=== PATIENT | female | born 1980 | race Caucasian/White ===

== ENCOUNTER 2018-03-18 00:23 | Emergency (ER) | payer BC, SELFPAY ==
[2018-03-18 00:29] VITALS: BP 153/77; PULSE 120; RESP 28; TEMP 37; O2SAT 94
--- NOTE | 2018-03-18 00:41 | ED.GENADUL_ITS ---
Disposition Clinical Impression: Sore throat Disposition: HOME Condition: Good Instructions: Pharyngitis (ED) Additional Instructions: May use Tylenol 650-975 mg every 4-6 hours, as needed for pain. Total daily dose should not exceed 2000 mg. May use ibuprofen 600-800 mg every 8 hours, with food, as needed for pain OR may use Aleve 500mg every 12 hours as needed for pain. Please follow-up with regular doctor if not improving in 3 days time. Return to the emergency department for any acute concerns. Medical Decision Making - Lab Data POC Strep Test-[facility](Rapid) Start: 03/18/18 00: 33 Freq: Status: Active Document 03/18/18 00:33 (Rec: 03/18/18 00:33 [id number]) Strep test-[facility](Rapid)-POC POC-Strep test-[facility] (Rapid) Negative - Medical Decision Making 38-year-old female presents with sore throat over 1 days time. She is afebrile , well-appearing, her oropharynx is erythematous without asymmetry or exudate. Differential diagnosis includes acute streptococcal pharyngitis, viral pharyngitis. Referred for rapid strep test which was negative. Given single dose of dexamethasone for its anti-inflammatory properties. She will use over- the-counter medicines at home to control the discomfort and return if worsening. Stable for discharge. Please note: Account Resolution Expert/documentation created with [employer] software. There may be voice to text translation errors in this documentation. History of Present Illness - General Chief complaint: Sorethroat Stated complaint: SORE THROAT Time Seen by Provider: 03/18/18 00:26 Source: patient, RN notes reviewed Mode of arrival: ambulatory Limitations: no limitations - History of Present Illness Initial comments: Sore throat: 38-year-old female reports the gradual onset this morning of constant, moderate , achy sore throat is nonradiating. She has been taking liquids and solids by mouth without difficulty. She has not had drooling. No ear pain. No fever. - Related Data Etonogestrel [Nexplanon] 68 mg SQ ONCE #1 implant 09/21/15 Compression Garments 01/21/16 Albuterol Sulfate [Proair Hfa] 1 - 2 puff IH Q4H PRN #1 inhaler 08/11/17 Mag Hydrox/Al Hydrox/Simeth [Maalox Advanced Suspension] 30 ml PO Q2H PRN PRN # 1 ml 10/24/17 Loratadine [Claritin] 10 mg PO DAILY #90 tab-cap 11/28/17 Omeprazole 20 mg PO DAILY #30 tab-cap 11/28/17 Ranitidine [Zantac] 150 mg PO DAILY 03/18/18 Allergies Allergy/AdvReac Type Severity Reaction Status Date / Time nickel Allergy Intermediate Blistering Unverified 03/18/18 00:30 and shedding skin strawberry Allergy Intermediate HIVES Unverified 03/18/18 00:30 oxycodone AdvReac Severe SEVERE Unverified 03/18/18 00:30 NAUSEA/SHAKES erythromycin base AdvReac Intermediate VOMITING Unverified 03/18/18 00:30 adhesive AdvReac Mild Unverified 03/18/18 00:30 influenza virus vaccine, AdvReac Unverified 03/18/18 00:30 specific Review of Systems Other: 6 systems reviewed, otherwise negative Past Medical History - Past Medical History Medical history: asthma, DVT Surgical history: Family history: no significant family history - Social History Alcohol use: occasionally Drug use: none General Exam - General Limitations: no limitations General appearance: alert, in no apparent distress - Head Head exam: Present: atraumatic, normocephalic - Eye Eye exam: Present: PERRL, EOMI - ENT ENT exam: Present: other (Erythematous tonsillar pillars without swelling, no exudate.) - Neck Neck exam: Present: normal inspection, tenderness, full ROM, lymphadenopathy. Absent: meningismus - Respiratory Respiratory exam: Present: normal lung sounds bilaterally. Absent: respiratory distress - Cardiovascular Cardiovascular Exam: Present: regular rate, normal rhythm, other (Heart rate was approximately 88 at the time of my exam) - GI/Abdominal GI/Abdominal exam: Present: soft. Absent: distended - Neurological Exam Neurological exam: Present: alert, oriented X3 - Psychiatric Psychiatric exam: Present: normal affect, normal mood - Skin Skin exam: Present: warm, dry, intact Course Vital Signs - 24 hr 03/18/18 00:29 Temperature 37 C Pulse 120 H Respiratory 28 H Rate Blood Pressure 153/77 Pulse Oximetry 94 L
== END 2018-03-18 00:44 | disposition home or self-care (01) ==
PROVIDERS: Emergency Provider Emergency Medicine; PCP Family Medicine
DX: J02.9 Acute pharyngitis, unspecified (principal)
CPT/HCPCS: 87880; 99283

== ENCOUNTER 2018-03-19 17:46 | Emergency (ER) | payer BC, SELFPAY ==
[2018-03-19 18:03] VITALS: BP 147/109; PULSE 98; RESP 16; TEMP 36.9; O2SAT 94
--- NOTE | 2018-03-19 18:44 | ED.GENADUL_ITS ---
Disposition Clinical Impression: Hand, foot and mouth disease, Cellulitis Disposition: HOME Condition: Fair Instructions: Viral Syndrome (ED) Additional Instructions: Encourage hydration. Take antibiotics for cellulitis on the right leg as prescribed. Even if symptoms improve please take the entire course. If you develop fever/chills, spreading of the redness, other new/worsening symptoms please seek care urgently once again. In regard to the xwak-xahl-wit-mouth, this is viral and self-limiting. May try hydrocortisone cream to help with the itching in her hands. Tylenol and/or ibuprofen as needed for discomfort. Please follow-up with primary care in 1 week for reevaluation. Prescriptions: Cephalexin [Keflex] 500 mg PO BID #14 capsule Referrals: Chris Hernandez MD [Primary Care Provider] - Forms: Work Release Medical Decision Making - Medical Decision Making Patient presents with chief complaint of rash to hands, feet and in oropharynx. Rash consistent with hadn foot and mouth. We discussed that this is viral and self limiting. Discussed expected course. Discussed that this is contagious and how to prevent spread. Discussed techniques that may help with symptomatic management. Offered viscous lidocaine, she is declining at this time. Feels that she is able to hydrate an swallow well. Marlys also has a defined area of erythema that has been growing on the RLE. Patient has history of lymphadema. This is most consistent with growing area of cellulitis. She will be placed on Keflex. Encouraged hydration. Advised f/ u with primary care in one week for reevaluation. We discussed new/worsening symptoms and when to seek care urgently once again. All of her questions and concerns were addressed, she is in agreement with this plan. History of Present Illness - General Chief complaint: RashLesion Stated complaint: RASH ON FEET AND HANDS AND LEGS Time Seen by Provider: 03/19/18 18:28 Source: patient, family, RN notes reviewed Mode of arrival: ambulatory Limitations: no limitations - History of Present Illness Initial comments: Patient is a 38-year-old female presenting today with chief complaint of rash to hands, feet and mouth. She reports that symptoms began 3 days ago. She denies any fevers or chills. Denies any GI upset or upper respiratory symptoms. Was tested for strep throat 3 days ago when she was seen in the emergency department. She reports that at that point the symptoms seemed to be isolated to the sore throat. Strep throat was found to be negative. However, she began noting rash on the feet and hands today. Reports that the rash on her feet is uncomfortable particularly ambulation. Rash on hands, which appears very similar to that of the feet, is itchy patient has Nexplanon. Also noted erythematous, painful area on the right anterior tibia. Patient reports that this began this morning and has since grown. Patient does have history of lymphedema. Unclear as to where this lesion may have started from. No known trauma. - Related Data Etonogestrel [Nexplanon] 68 mg SQ ONCE #1 implant 09/21/15 Compression Garments 01/21/16 Albuterol Sulfate [Proair Hfa] 1 - 2 puff IH Q4H PRN #1 inhaler 08/11/17 Mag Hydrox/Al Hydrox/Simeth [Maalox Advanced Suspension] 30 ml PO Q2H PRN PRN # 1 ml 10/24/17 Loratadine [Claritin] 10 mg PO DAILY #90 tab-cap 11/28/17 Omeprazole 20 mg PO DAILY #30 tab-cap 11/28/17 Ranitidine [Zantac] 150 mg PO DAILY 03/18/18 Cephalexin [Keflex] 500 mg PO BID #14 capsule 03/19/18 Allergies Allergy/AdvReac Type Severity Reaction Status Date / Time nickel Allergy Intermediate Blistering Unverified 03/19/18 18:07 and shedding skin strawberry Allergy Intermediate HIVES Unverified 03/19/18 18:07 oxycodone AdvReac Severe SEVERE Unverified 03/19/18 18:07 NAUSEA/SHAKES erythromycin base AdvReac Intermediate VOMITING Unverified 03/19/18 18:07 adhesive AdvReac Mild Unverified 03/19/18 18:07 influenza virus vaccine, AdvReac Unverified 03/19/18 18:07 specific Review of Systems Constitutional: no symptoms reported Respiratory: no symptoms reported Cardiovascular: denies: chest pain Gastrointestinal: denies: abdominal pain, nausea, vomiting Musculoskeletal: as per HPI Skin: as per HPI Neurological: as per HPI, abnormal gait (walking with antalgic gait secondary to bilateral foot pain) Past Medical History - Past Medical History Medical history: asthma, DVT, GERD PCOS, morbid obesity Surgical history: Family history: no significant family history - Social History Alcohol use: occasionally Drug use: none General Exam - General Limitations: no limitations General appearance: alert, in no apparent distress - Eye Eye exam: Present: normal apperance - ENT ENT exam: Present: mucous membranes moist. Absent: normal exam (Patient has a erythematous rash to the soft palate. Uvula is midline. No discharge. No tonisillar swelling) - Respiratory Respiratory exam: Present: normal lung sounds bilaterally. Absent: respiratory distress, wheezes, rales, rhonchi, stridor - Cardiovascular Cardiovascular Exam: Present: regular rate, normal rhythm, irregular rhythm - Extremities Exam Extremities exam: Present: tenderness, normal capillary refill, pedal edema ( chronic lymphadema). Absent: normal inspection (Patient has a raised erythematous rash with small circular defined areas on both the feet and hands. On feet, rash is on dorsal and platar surfaces. Primarily on the palm of the hands. No opening. No evidence of bacterial infection. Tenderness with palpation over the feet. areas of excoriation. Patinet has a defined area of erythema and warmth over the anteriolateral right lower extremity. This area is approximately 4cm x 3cm. No drainage, no area of fluctuance.), joint swelling, calf tenderness - Back Exam Back exam: Absent: rash noted - Neurological Exam Neurological exam: Present: alert, normal gait - Psychiatric Psychiatric exam: Present: normal affect, normal mood - Skin Skin exam: Present: rash (as above) Course Vital Signs - 24 hr 03/19/18 18:03 Temperature 36.9 C Pulse 98 H Respiratory 16 Rate Blood Pressure 147/109 Pulse Oximetry 94 L
== END 2018-03-19 19:00 | disposition home or self-care (01) ==
PROVIDERS: Emergency Provider Emergency Medicine; PCP Family Medicine
DX: B08.4 Enteroviral vesicular stomatitis with exanthem (principal); L03.115 Cellulitis of right lower limb; Z87.2 Personal history of diseases of the skin and subcutaneous tissue
CPT/HCPCS: 99283

== ENCOUNTER 2018-03-21 12:11 | Emergency (ER) | payer BC, SELFPAY ==
[2018-03-21 12:16] VITALS: BP 135/82; PULSE 102; RESP 18; TEMP 37.1; O2SAT 95
--- NOTE | 2018-03-21 13:12 | ED.GENADUL ---
Disposition Clinical Impression: Hand, foot and mouth disease Disposition: HOME Condition: Fair Instructions: Viral Syndrome (ED) Additional Instructions: Encourage hydration. Tylenol and/or ibuprofen as needed for discomfort. If this is unsuccessful in alleviating your discomfort please use Vicodin as prescribed. Use medication only as prescribed. Keep this in a safe place. There is 300 mg of Tylenol and every tablet of Vicodin. Please do not take more than 4000 mg of Tylenol daily. Please keep upcoming appointment with primary care. If you develop fever/chills, increased pain or the new/worsening symptoms please seek care urgently once again. Prescriptions: Hydrocodone Bit/Acetaminophen [Vicodin 5-300 mg Tablet] 1 each PO Q4H PRN #10 tablet PRN Reason: Pain Referrals: Chris Hernandez MD [Primary Care Provider] - Forms: Work Release Medical Decision Making - Medical Decision Making Patient presents today for reevaluation of qvsd-klpg-qvz-mouth. On exam, she continues to have the classic rash associated with guic-gsrf-epn-mouth. Given the severity of her discomfort I did ask Dr. Gibbs to evaluate her as well. Dr. Gibbs also reviewed the rash and agrees with my assessment of kitj-dzoj-qsb-mouth. Patient believes she had a exposure to qwca-lgxe-mwd-mouth from her daughter. Given her level of discomfort, I am concerned that may she may have been exposed to coxsackie a 6. My review of the literature shows that this tends to be more uncomfortable. I also reviewed with the patient that this tends to last longer and may last up to 12 days. Given her acute discomfort I feel that narcotics are appropriate at this time to help with her discomfort. I do not see any evidence of acute infection. Patient has been afebrile and the site of her discomfort has been feeling well. Patient will be placed on Vicodin. Has had allergy to oxycodone in the past was tolerated Vicodin well. I discussed with her the safe usage of Tylenol with this medication, she is advised not use more than 4000 mg daily. Patient will contract for narcotic usage. She is given strict usage guidelines. In particular, as she has a young child advise safe storage of this medication. Patient has an upcoming appointment with primary care in 2 days at which time she will have the rash reevaluated. All of her questions and concerns were addressed and she is in agreement with this plan. Encouraged elevation of her extremities. Note was given for work. History of Present Illness - General Chief complaint: RashLesion Stated complaint: HAND FOOT AND MOUTH Time Seen by Provider: 03/21/18 12:16 Source: patient, family, RN notes reviewed Mode of arrival: ambulatory Limitations: no limitations - History of Present Illness Initial comments: Patient is a 38-year-old female presenting today with chief complaint of rash to her mouth, hands and feet. Patient was seen by myself 2 days ago at which time she was diagnosed with frun-mwfv-ixv-mouth. She reports that since that time the rash has darkened in color and that she is had increased discomfort. No fevers or chills. Patient was placed on Keflex by myself when I saw her previously for area of suspected cellulitis on her right lower extremity that did not appear related to the hlrz-bxjn-oyp-mouth rash. That area has become erythematous prior to the onset of the lhwe-djox-ccm-mouth symptoms. Patient has been taking Keflex as prescribed. She has also noted new lesions on the left lateral aspect of her tongue. States that while the sores in her mouth has been uncomfortable the feet are particularly bothersome to her. She reports she has not been able to go to work secondary to this discomfort. States that it is quite debilitating discomfort. Has not noted any opening or weeping of any of the wounds. - Related Data Etonogestrel [Nexplanon] 68 mg SQ ONCE #1 implant 09/21/15 Compression Garments 01/21/16 Albuterol Sulfate [Proair Hfa] 1 - 2 puff IH Q4H PRN #1 inhaler 08/11/17 Loratadine [Claritin] 10 mg PO DAILY #90 tab-cap 11/28/17 Ranitidine [Zantac] 150 mg PO DAILY 03/18/18 Cephalexin [Keflex] 500 mg PO BID #14 capsule 03/19/18 Hydrocodone Bit/Acetaminophen [Vicodin 5-300 mg Tablet] 1 each PO Q4H PRN #10 tablet 03/21/18 Allergies Allergy/AdvReac Type Severity Reaction Status Date / Time nickel Allergy Intermediate Blistering Unverified 03/21/18 12:21 and shedding skin strawberry Allergy Intermediate HIVES Unverified 03/21/18 12:21 oxycodone AdvReac Severe SEVERE Unverified 03/21/18 12:21 NAUSEA/SHAKES erythromycin base AdvReac Intermediate VOMITING Unverified 03/21/18 12:21 adhesive AdvReac Mild Unverified 03/21/18 12:21 influenza virus vaccine, AdvReac Unverified 03/21/18 12:21 specific Review of Systems Constitutional: no symptoms reported, see HPI. denies: chills, fever ENT: as per HPI Respiratory: no symptoms reported. denies: cough, shortness of breath Cardiovascular: denies: chest pain, palpitations Gastrointestinal: denies: abdominal pain, nausea, vomiting Musculoskeletal: as per HPI Skin: as per HPI Neurological: as per HPI, abnormal gait (Associated with pain in her feet) Past Medical History - Past Medical History Medical history: asthma, DVT, GERD PCOS, morbid obesity Surgical history: Family history: no significant family history - Social History Alcohol use: occasionally Drug use: none General Exam - General Limitations: no limitations General appearance: alert, in no apparent distress (Patient appears uncomfortable and upset) - Head Head exam: Present: atraumatic - Eye Eye exam: Present: normal apperance - ENT ENT exam: Present: normal orophraynx, mucous membranes moist. Absent: normal exam (Patient has 3 small ulcerative lesions on the lateral aspect of the left side of her tongue. They are approximately 1-2 mm in diameter. No surrounding erythema. No discharge is noted. Minimal pain with palpation. The oropharynx is otherwise unremarkable. I had appreciated a rash in this area when I had seen her previously and this seems to have resolved) - Neck Neck exam: Present: normal inspection - Respiratory Respiratory exam: Present: normal lung sounds bilaterally. Absent: respiratory distress - Cardiovascular Cardiovascular Exam: Present: regular rate, normal rhythm, normal heart sounds - Rectal Rectal exam: Present: deferred - Extremities Exam Extremities exam: Absent: normal inspection (Patient is noted to have a maculopapular rash over the palms of her bilateral hands and circumferentially about the feet. Rash is erythematous with 2-3 mm circumferential areas noted. Some of these are flat and some are slightly raised. These do not appear open. No weeping. Pain is elicited with palpation over the feet and the palms. She feels that she is limited range of motion secondary to this rash and discomfort. No surrounding erythema. This rash is consistent with mchr-ajti-omv-mouth. She is also noted to have some small areas that are more sporadic on the lower extremities that are erythematous. The area that had been concerning for cellulitis when I saw her a few days ago appears to be improving. The erythema is not quite as bright and the size overall has diminished. Again, no discharge from these areas. No tenderness elicited with palpation over this area at this time. ) - Back Exam Back exam: Present: rash noted (Patient has an excoriated rash over the right side of the upper buttock. None is noted elsewhere) - Neurological Exam Neurological exam: Present: alert, abnormal gait (Patient is ambulating with an antalgic gait, she appears uncomfortable with ambulation) - Psychiatric Psychiatric exam: Present: normal affect, normal mood - Skin Skin exam: Present: rash (As above) Course Vital Signs - 24 hr 03/21/18 12:16 Temperature 37.1 C Pulse 102 H Respiratory 18 Rate Blood Pressure 135/82 Pulse Oximetry 95
--- NOTE | 2018-03-21 13:27 | ED.GENADUL_ITS ---
Disposition Clinical Impression: Hand, foot and mouth disease Disposition: HOME Condition: Fair Instructions: Viral Syndrome (ED) Additional Instructions: Encourage hydration. Tylenol and/or ibuprofen as needed for discomfort. If this is unsuccessful in alleviating your discomfort please use Vicodin as prescribed. Use medication only as prescribed. Keep this in a safe place. There is 300 mg of Tylenol and every tablet of Vicodin. Please do not take more than 4000 mg of Tylenol daily. Please keep upcoming appointment with primary care. If you develop fever/chills, increased pain or the new/worsening symptoms please seek care urgently once again. Prescriptions: Hydrocodone Bit/Acetaminophen [Vicodin 5-300 mg Tablet] 1 each PO Q4H PRN #10 tablet PRN Reason: Pain Referrals: Chris Hernandez MD [Primary Care Provider] - Forms: Work Release Medical Decision Making - Medical Decision Making Patient presents today for reevaluation of ulra-aiab-gaz-mouth. On exam, she continues to have the classic rash associated with oept-wmle-jvm-mouth. Given the severity of her discomfort I did ask Dr. Gibbs to evaluate her as well. Dr. Gibbs also reviewed the rash and agrees with my assessment of wuxm-huss-mfg -mouth. Patient believes she had a exposure to flny-tlfh-jka-mouth from her daughter. Given her level of discomfort, I am concerned that may she may have been exposed to coxsackie a 6. My review of the literature shows that this tends to be more uncomfortable. I also reviewed with the patient that this tends to last longer and may last up to 12 days. Given her acute discomfort I feel that narcotics are appropriate at this time to help with her discomfort. I do not see any evidence of acute infection. Patient has been afebrile and the site of her discomfort has been feeling well. Patient will be placed on Vicodin. Has had allergy to oxycodone in the past was tolerated Vicodin well. I discussed with her the safe usage of Tylenol with this medication, she is advised not use more than 4000 mg daily. Patient will contract for narcotic usage. She is given strict usage guidelines. In particular, as she has a young child advise safe storage of this medication. Patient has an upcoming appointment with primary care in 2 days at which time she will have the rash reevaluated. All of her questions and concerns were addressed and she is in agreement with this plan. Encouraged elevation of her extremities. Note was given for work. History of Present Illness - General Chief complaint: RashLesion Stated complaint: HAND FOOT AND MOUTH Time Seen by Provider: 03/21/18 12:16 Source: patient, family, RN notes reviewed Mode of arrival: ambulatory Limitations: no limitations - History of Present Illness Initial comments: Patient is a 38-year-old female presenting today with chief complaint of rash to her mouth, hands and feet. Patient was seen by myself 2 days ago at which time she was diagnosed with eyzl-gfmh-afw-mouth. She reports that since that time the rash has darkened in color and that she is had increased discomfort. No fevers or chills. Patient was placed on Keflex by myself when I saw her previously for area of suspected cellulitis on her right lower extremity that did not appear related to the bbtr-updw-qxc-mouth rash. That area has become erythematous prior to the onset of the fupw-zyus-ptf-mouth symptoms. Patient has been taking Keflex as prescribed. She has also noted new lesions on the left lateral aspect of her tongue. States that while the sores in her mouth has been uncomfortable the feet are particularly bothersome to her. She reports she has not been able to go to work secondary to this discomfort. States that it is quite debilitating discomfort. Has not noted any opening or weeping of any of the wounds. - Related Data Etonogestrel [Nexplanon] 68 mg SQ ONCE #1 implant 09/21/15 Compression Garments 01/21/16 Albuterol Sulfate [Proair Hfa] 1 - 2 puff IH Q4H PRN #1 inhaler 08/11/17 Loratadine [Claritin] 10 mg PO DAILY #90 tab-cap 11/28/17 Ranitidine [Zantac] 150 mg PO DAILY 03/18/18 Cephalexin [Keflex] 500 mg PO BID #14 capsule 03/19/18 Hydrocodone Bit/Acetaminophen [Vicodin 5-300 mg Tablet] 1 each PO Q4H PRN #10 tablet 03/21/18 Allergies Allergy/AdvReac Type Severity Reaction Status Date / Time nickel Allergy Intermediate Blistering Unverified 03/21/18 12:21 and shedding skin strawberry Allergy Intermediate HIVES Unverified 03/21/18 12:21 oxycodone AdvReac Severe SEVERE Unverified 03/21/18 12:21 NAUSEA/SHAKES erythromycin base AdvReac Intermediate VOMITING Unverified 03/21/18 12:21 adhesive AdvReac Mild Unverified 03/21/18 12:21 influenza virus vaccine, AdvReac Unverified 03/21/18 12:21 specific Review of Systems Constitutional: no symptoms reported, see HPI. denies: chills, fever ENT: as per HPI Respiratory: no symptoms reported. denies: cough, shortness of breath Cardiovascular: denies: chest pain, palpitations Gastrointestinal: denies: abdominal pain, nausea, vomiting Musculoskeletal: as per HPI Skin: as per HPI Neurological: as per HPI, abnormal gait (Associated with pain in her feet) Past Medical History - Past Medical History Medical history: asthma, DVT, GERD PCOS, morbid obesity Surgical history: Family history: no significant family history - Social History Alcohol use: occasionally Drug use: none General Exam - General Limitations: no limitations General appearance: alert, in no apparent distress (Patient appears uncomfortable and upset) - Head Head exam: Present: atraumatic - Eye Eye exam: Present: normal apperance - ENT ENT exam: Present: normal orophraynx, mucous membranes moist. Absent: normal exam (Patient has 3 small ulcerative lesions on the lateral aspect of the left side of her tongue. They are approximately 1-2 mm in diameter. No surrounding erythema. No discharge is noted. Minimal pain with palpation. The oropharynx is otherwise unremarkable. I had appreciated a rash in this area when I had seen her previously and this seems to have resolved) - Neck Neck exam: Present: normal inspection - Respiratory Respiratory exam: Present: normal lung sounds bilaterally. Absent: respiratory distress - Cardiovascular Cardiovascular Exam: Present: regular rate, normal rhythm, normal heart sounds - Rectal Rectal exam: Present: deferred - Extremities Exam Extremities exam: Absent: normal inspection (Patient is noted to have a maculopapular rash over the palms of her bilateral hands and circumferentially about the feet. Rash is erythematous with 2-3 mm circumferential areas noted. Some of these are flat and some are slightly raised. These do not appear open. No weeping. Pain is elicited with palpation over the feet and the palms. She feels that she is limited range of motion secondary to this rash and discomfort. No surrounding erythema. This rash is consistent with hand-foot- and-mouth. She is also noted to have some small areas that are more sporadic on the lower extremities that are erythematous. The area that had been concerning for cellulitis when I saw her a few days ago appears to be improving. The erythema is not quite as bright and the size overall has diminished. Again, no discharge from these areas. No tenderness elicited with palpation over this area at this time. ) - Back Exam Back exam: Present: rash noted (Patient has an excoriated rash over the right side of the upper buttock. None is noted elsewhere) - Neurological Exam Neurological exam: Present: alert, abnormal gait (Patient is ambulating with an antalgic gait, she appears uncomfortable with ambulation) - Psychiatric Psychiatric exam: Present: normal affect, normal mood - Skin Skin exam: Present: rash (As above) Course Vital Signs - 24 hr 03/21/18 12:16 Temperature 37.1 C Pulse 102 H Respiratory 18 Rate Blood Pressure 135/82 Pulse Oximetry 95
[2018-03-21] MEDS: HYDROcodone 5/Acetaminophen 325 TAB PO (13:40)
== END 2018-03-21 13:41 | disposition home or self-care (01) ==
PROVIDERS: Emergency Provider Physician Assistant; PCP Family Medicine
DX: B08.4 Enteroviral vesicular stomatitis with exanthem (principal)
CPT/HCPCS: 99283

== ENCOUNTER 2018-04-16 18:45 | Outpatient (REF) | payer BC, SELFPAY | END 2018-04-16 19:05 | LOC: LBN 18:45 | PROVIDERS: PCP Family Medicine; Visit Provider Family Medicine | DX: L03.116 Cellulitis of left lower limb (principal) | CPT/HCPCS: 87077; 87070; 87186; 87205 ==

== ENCOUNTER 2018-05-01 11:34 | Outpatient (CLI) | payer BC, SELFPAY ==
--- NOTE | 2018-05-01 15:53 | DI.RAD_ITS ---
SYMPTOMS/DIAGNOSIS: CHRONIC SKIN INFECTION/ULCER, CELLULITIS, L03.90, ? OSTEOMYELITIS LEFT FOOT: Three views were obtained. Note is made of generalized soft tissue swelling of the foot. There is a prominent osteophyte at the site of attachment of the plantar fascia on the calcaneus. No other bony abnormality seen.
== END 2018-05-01 11:54 ==
PROVIDERS: PCP Family Medicine; Visit Provider Family Medicine
DX: L03.116 Cellulitis of left lower limb (principal); M79.89 Other specified soft tissue disorders; M25.772 Osteophyte, left ankle
CPT/HCPCS: 73630

== ENCOUNTER 2018-05-02 16:17 | Outpatient (CLI) | payer BC, SELFPAY ==
[2018-05-02 16:34] LABS: Abs Immature Grans 0.02 k/cumm (0.0-0.09); Absolute Basophil Count 0.01 k/cumm (0.0-0.2); Absolute Eosinophil Count 0.07 k/cumm (0.0-0.7); Absolute Lymphocyte Count 1.71 k/cumm (1.2-3.4); Absolute Monocyte Count 0.61 k/cumm (0.11-0.7); Basophils % 0.2; Eosinophils % 1.1; HCT 43.1 % (36.0-46.0); HGB 12.7 g/dL (12.0-15.5); Immature Grans % 0.3; Lymphocytes % 27.5; Mean Corp. HGB Concentration 29.5 g/dL (32.0-36.0); Mean Corpuscular Hemoglobin 24.1 pg (27.0-33.0); Mean Corpuscular Volume 81.8 fL (80-95); Mean Platelet Volume 10.3 fL (8.0-11.0); Monocytes % 9.8; Neutrophils % 61.1; Platelet Count 181 x1000/uL (130-400); RBC 5.27 m/cumm (4.00-5.20); RBC Distribution Width 17.2 % (11.7-14.6); White Blood Cell Count 6.22 k/cumm (4.4-10.8)
[2018-05-02 18:40] LABS: ALT 28 U/L (12-78); AST 20 U/L (15-37); Albumin 3.4 g/dL (3.4-5.0); Alkaline Phosphatase 69 U/L (46-116); Anion Gap 8.1 mmol/L (3-11); BUN 14 mg/dL (7-18); Bilirubin, Total 0.6 mg/dL (0.2-1.0); CO2 30.9 mmol/L (21.0-32.0); CREATININE 0.75 mg/dL (0.55-1.02); Calcium 8.9 mg/dL (8.5-10.1); Chloride 102 mmol/L (98-107); Glucose 99 mg/dL (70-100); Potassium 4.2 mmol/L (3.5-5.1); Sodium 141 mmol/L (136-145); Total Protein 7.3 g/dL (6.4-8.2)
== END 2018-05-02 16:37 ==
PROVIDERS: PCP Family Medicine; Visit Provider Family Medicine
DX: L03.116 Cellulitis of left lower limb (principal)
CPT/HCPCS: 36415; 80053; 85025

== ENCOUNTER 2018-05-31 00:40 | Outpatient (CLI) | payer BC, SELFPAY ==
--- NOTE | 2018-05-31 15:50 | DI.RAD_ITS ---
SYMPTOM/DIAGNOSIS: PEDAL EDEMA, EXERTIONAL DYSPNEA, H/O DVT PA AND LATERAL CHEST: The lungs are free of infiltrate. There is no pleural effusion. The cardiovascular structures are intact. The hilar structures, mediastinum and tracheal air column are well maintained. SUMMARY: No evidence of acute cardiopulmonary disease.
== END 2018-05-31 01:00 ==
PROVIDERS: PCP Family Medicine; Visit Provider Family Medicine
DX: R06.09 Other forms of dyspnea (principal); R60.0 Localized edema; Z86.718 Personal history of other venous thrombosis and embolism
CPT/HCPCS: 71046

== ENCOUNTER 2018-06-20 02:09 | Outpatient (CLI) | payer BC, SELFPAY ==
--- NOTE | 2018-06-20 | PFT_ITS ---
PULMONARY FUNCTION TEST REPORT Patient identification - Stefany Shepard DATE OF - 80 DATE OF SERVICE - 06/20/2018 REQUESTING PROVIDER Silvestre Philippe M.D. INTERPRETATION OF STUDY Spirometry shows moderately severe obstructive airways disease with no significant bronchodilator response. LUNG VOLUMES - Lung volumes show no evidence of restriction. The slightly low SVC is due to very low ERV, which may be related to the patient's obesity and chest wall restriction. DIFFUSION CAPACITY- Slightly elevated. AIRWAY RESISTANCE - Normal. IMPRESSION Moderately severe obstructive airways disease with no significant bronchodilator response. This is associated with elevated diffusion capacity. This constellation of finding can be seen in asthma. If the diagnosis of asthma is in question, proceeding with Methacholine bronchoprovocation challenge testing may prove to be useful. The slightly low SVC is due to very low ERV, which may be due to the patient's obesity and chest wall restriction. Sara Jacobo M.D. NIKKIE/jass T - 06/28/2018
[2018-06-20] MEDS: Inhaler, Assist Device 1 EACH MC (13:36)
[2018-06-20] MEDS: Albuterol HFA 18 GM 200 PUFF INH IH (13:37)
== END 2018-06-20 02:29 ==
PROVIDERS: PCP Family Medicine; Visit Provider Family Medicine
DX: R06.02 Shortness of breath (principal)
CPT/HCPCS: 94060; 94150; 94726; 94729

== ENCOUNTER 2018-08-15 15:38 | Outpatient (REF) | payer BC, SELFPAY | END 2018-08-15 15:58 | LOC: LBN 15:38 | PROVIDERS: PCP Family Medicine; Visit Provider Family Medicine | DX: J11.1 Influenza due to unidentified influenza virus with other respiratory manifestations (principal) | CPT/HCPCS: 87449 ==

== ENCOUNTER 2019-10-12 10:35 | Outpatient (CLI) | payer BC, SELFPAY ==
[2019-10-12 11:21] LABS: HCT 42.4 % (36.0-46.0); Mean Corp. HGB Concentration 30.7 g/dL (32.0-36.0); Mean Corpuscular Volume 84.8 fL (80-95); Platelet Count 219 x1000/uL (130-400); RBC Distribution Width 15.8 % (11.7-14.6); White Blood Cell Count 6.96 k/cumm (4.4-10.8)
[2019-10-12 11:58] LABS: ALT 23 U/L (14-59); AST 18 U/L (15-37); Albumin 3.4 g/dL (3.4-5.0); Alkaline Phosphatase 58 U/L (46-116); BUN 11 mg/dL (7-18); Bilirubin, Total 0.9 mg/dL (0.2-1.0); CREATININE 0.73 mg/dL (0.55-1.02); Chloride 103 mmol/L (98-107); Glucose 94 mg/dL (74-106); Potassium 4.3 mmol/L (3.5-5.1); Sodium 138 mmol/L (136-145); Total Protein 7.1 g/dL (6.4-8.2)
[2019-10-12 12:23] LABS: Calculated LDL 107 mg/dL (<100); Cholesterol 156 mg/dL (<200); HDL Cholesterol 37 mg/dL (40-60); Triglyceride 60 mg/dL (<150)
== END 2019-10-12 10:55 ==
PROVIDERS: PCP Family Medicine; Visit Provider Family Medicine
DX: R60.0 Localized edema (principal); Z82.49 Family history of ischemic heart disease and other diseases of the circulatory system; E66.8 Other obesity
CPT/HCPCS: 36415; 80053; 80061; 85027; 83036

== ENCOUNTER 2020-02-05 22:26 | Outpatient (REF) | payer BC, SELFPAY | END 2020-02-05 22:46 | LOC: LBN 22:26 | PROVIDERS: PCP Family Medicine; Visit Provider Nurse Practitioner Family | DX: W55.03XA Scratched by cat, initial encounter (principal); S80.812A Abrasion, left lower leg, initial encounter | CPT/HCPCS: 87077; 87070; 87186; 87205 ==

== ENCOUNTER 2020-02-28 01:43 | Outpatient (CLI) | payer BC, SELFPAY ==
[2020-02-28 16:07] LABS: Abs Immature Grans 0.04 10^3/uL (0.0-0.06); Absolute Basophil Count 0.01 10^3/uL (0.0-0.2); Absolute Eosinophil Count 0.12 10^3/uL (0.0-0.7); Absolute Lymphocyte Count 2.84 10^3/uL (1.2-3.4); Absolute Monocyte Count 0.61 10^3/uL (0.1-0.8); Absolute Neutrophil Count 5.79 10^3/uL (1.2-6.7); Basophils % 0.1; Eosinophils % 1.3; HCT 42.9 % (36.0-46.0); HGB 12.8 g/dL (11.2-15.7); Immature Grans % 0.4; Lymphocytes % 30.2; MCHC 29.8 % (32.0-36.0); Monocytes % 6.5; Neutrophils % 61.5; Platelet Count 198 10^3/uL (130-400); RBC 5.11 10^6/uL (3.93-5.22); RDW 15.1 % (11.7-14.6); RDW-SD 46.4 fL; WBC 9.41 10^3/uL (4.4-10.8)
[2020-02-28 17:21] LABS: ALT 23 U/L (14-59); AST 16 U/L (15-37); Albumin 3.3 g/dL (3.4-5.0); Alkaline Phosphatase 58 U/L (46-116); Anion Gap 10.5 mmol/L (3-11); BUN 12 mg/dL (7-18); Bilirubin, Total 0.7 mg/dL (0.2-1.0); CO2 25.5 mmol/L (21.0-32.0); CREATININE 0.86 mg/dL (0.55-1.02); Calcium 8.7 mg/dL (8.5-10.1); Calculated LDL 88 mg/dL (<100); Chloride 102 mmol/L (98-107); Cholesterol 138 mg/dL (<200); Glucose 120 mg/dL (74-106); HDL Cholesterol 36 mg/dL (40-60); Potassium 3.6 mmol/L (3.5-5.1); Sodium 138 mmol/L (136-145); TSH 2.16 uIU/mL (0.36-3.74); Total Protein 7.1 g/dL (6.4-8.2); Triglyceride 71 mg/dL (<150)
[2020-02-28 17:44] LABS: NT-proBNP 28 pg/mL (<300)
== END 2020-02-28 02:03 ==
PROVIDERS: PCP Family Medicine; Visit Provider Family Medicine
DX: Z82.49 Family history of ischemic heart disease and other diseases of the circulatory system (principal); R53.83 Other fatigue; R06.02 Shortness of breath; E66.01 Morbid (severe) obesity due to excess calories
CPT/HCPCS: 36415; 80053; 80061; 83036; 83880; 84443; 85025

== ENCOUNTER 2020-03-24 00:27 | Outpatient (CLI) | payer BC, SELFPAY ==
--- NOTE | 2020-03-24 06:45 | DI.US_ITS ---
APPROVED REPORT EXAM: Comprehensive 2D, Doppler, and color-flow Echocardiogram Patient Location: Out-Patient Manganese Breaker: Starla Funes RDCS (AE) Indications: SOB, EDEMA, F/H CAD Other Information Technically limited study due to body habitus. Conclusion This is a technically limited study. Left Ventricle : The left ventricle is normal size. The left ventricular systolic function is normal. The left ventricular ejection fraction is within the normal range. There is normal left ventricular wall thickness. Wall motion appears normal. LVEF is 60%. Right Ventricle : The right ventricle is normal size. The right ventricular systolic function is norm al. Atria : The left atrium size is normal. The right atrium size is normal. Valves: There are no hemodynamically significant valvular lesions. Great Vessels : The aortic root is normal in size. The ascending aorta is normal in size. Aortic arch is normal in caliber. IVC is normal in size and collapses >50% with inspiration. Wall motion Left Ventricle The left ventricle is normal size. The left ventricular systolic function is normal. The left ventric ular ejection fraction is within the normal range. There is normal left ventricular wall thickness. W all motion appears normal. Diastolic function is likely normal There is no ventricular septal defect visualized. LVEF is 60%. Right Ventricle The right ventricle is normal size. The right ventricular systolic function is normal. Atria The left atrium size is normal. The right atrium size is normal. The interatrial septum is intact wit h no evidence for an atrial septal defect. Aortic Valve Aortic valve is trileaflet. There is no aortic valvular stenosis. No aortic regurgitation is present. Mitral Valve The mitral valve is normal in structure. No evidence of mitral valve stenosis. Trace mitral regurgita tion. Tricuspid Valve The tricuspid valve is normal in structure. There is no tricuspid valve stenosis. Trace tricuspid reg urgitation. Unable to assess PA pressure. Pulmonic Valve Pulmonic valve is not well visualized. There is no pulmonic valvular stenosis. Trace pulmonic regurgi tation. Great Vessels The aortic root is normal in size. The ascending aorta is normal in size. Aortic arch is normal in ca liber. IVC is normal in size and collapses >50% with inspiration. Pericardium There is no pericardial effusion. 2D Dimensions IVSD d PLAX 0.90 cm F: 0.6-1.0 LV Vol A2C d MOD 225.8 mL LVPW d PLAX 0.94 cm F: 0.6 - 1.0 LV Vol A4C d MOD 146.9 mL LVID d PLAX 4.96 cm F: 3.8 - 5.2 LA vol/ BSA A4C s A-L 18.6 mL/m2 LVDs 3.45 cm F: 2.2 - 3.5 LA Area A4C s MOD 18.52 cm2 RA Area A4C 22.32 cm2 LV EF A4C MOD 63.4 % RA Vol/ BSA A4C s A-L 23.9 mL/m2 LV EF A2C MOD 58.0 % LV EF Teichholz 56.2 % LV EF Biplane MOD 61.3 % LVEF (Connors's) 61.34 % F: 54 - 74 SV 117.62 mL LV Volume 127.66 mL F: 46 - 106 SV Index 38.99 mL/m2 LV Volume Index 42.41 mL/m2 F: 29 - 61 LV Vol Biplane MOD 191.8 mL FS 29.45 % M-Mode TAPSE 3.33 cm (M/F) >1.7 LV Diastology MV E' medial 0.201 (>0.07 m/s) E/A Ratio 1.6 LV E/e MED 6.65 (<14) MV E Vmax 1.35 (0.4-1.3 m/s) MV E' lateral 0.180 (>0.1 m/s) MV A Vmax 0.85 (0.4-1.3 m/s) LV E/e LAT 7.50 (<14) MV E/A Ratio 1.54 MV E/E' medial 6.70 MV E/E' lateral 7.50 Aortic Valve LVOT Vmax 1.51 m/s LVOT Mean Benito. 1.15 m/s LVOT Peak Grad 9.1 mmHg LVOT Mean Grad 5.8 mmHg LVOT VTI 0.339 m AoV Vmax 2.04 m/s Velocity Ratio 0.74 AoV Mean Benito. 1.54 m/s AoV Peak Grad 16.7 mmHg AoV Mean Grad 10.2 mmHg AoV VTI 0.377 m Mitral Valve MV DT 176 (160-240 msec) MV PHT 51 msec MV Area PHT 4.30 cm2 Pulmonary Valve PV Vmax 1.48 (0.5-1.5 m/s) RVOT Peak Gr. 2.70 mmHg PV Peak Grad 8.8 mmHg RVOT Mean Gr. 1.30 mmHg PV Mean Grad 4.6 mmHg RVOT VTI 0.127 m PV VTI 0.236 m RVOT Vmax 0.82 m/s
== END 2020-03-24 00:47 ==
PROVIDERS: PCP Family Medicine; Visit Provider Family Medicine
DX: R06.02 Shortness of breath (principal); R60.0 Localized edema; Z82.49 Family history of ischemic heart disease and other diseases of the circulatory system
CPT/HCPCS: 93306

== ENCOUNTER 2020-08-21 02:37 | Outpatient (CLI) | payer BC, SELFPAY ==
[2020-08-21 07:44] LABS: Hemoglobin A1C 5.9 % (<5.7)
[2020-08-21 08:53] LABS: ALT 24 U/L (14-59); AST 16 U/L (15-37); Albumin 3.7 g/dL (3.4-5.0); Alkaline Phosphatase 59 U/L (46-116); Anion Gap 8.9 mmol/L (3-11); BUN 15 mg/dL (7-18); Bilirubin, Total 0.8 mg/dL (0.2-1.0); CO2 29.1 mmol/L (21.0-32.0); CREATININE 0.85 mg/dL (0.55-1.02); Calcium 9.1 mg/dL (8.5-10.1); Chloride 102 mmol/L (98-107); Glucose 93 mg/dL (74-106); Potassium 3.9 mmol/L (3.5-5.1); Sodium 140 mmol/L (136-145); Total Protein 7.7 g/dL (6.4-8.2)
[2020-08-24 06:31] LABS: Vitamin D 25 Total 7.9 ng/ml (30-100)
== END 2020-08-21 02:57 ==
PROVIDERS: PCP Family Medicine; Visit Provider Internal Medicine
DX: E66.01 Morbid (severe) obesity due to excess calories (principal); Z68.45 Body mass index [BMI] 70 or greater, adult
CPT/HCPCS: 36415; 80053; 82306; 83036

== ENCOUNTER 2020-10-16 05:30 | Inpatient (IN) | payer BC, SELFPAY ==
[2020-10-16] VITALS (19 sets, daily range): BP systolic 109–165; BP diastolic 73–97; PULSE 99–124; RESP 15–26; TEMP 36.7–37.3; O2SAT 89–97
--- NOTE | 2020-10-16 05:30 | ED.GENADUL_ITS ---
Discharge Plan Disposition Patient Disposition: [facility] INPATIENT Condition: Poor Discharge Details Clinical Impression: Acute dyspnea, Hemoptysis Primary Care Provider: Silvestre Philippe ED Provider: Arthur Olivares [place] Meds and New Rx's Prescriptions: No Action mupirocin 2 % ointment 1 applic topical BID Qty: 15 RF: 0 albuterol sulfate [Ventolin HFA] 90 mcg/actuation HFA aerosol inhaler 2 puff IH Q4H PRN (Reason: shortness of breath or wheezing) Qty: 18 RF: 11 mometasone 0.1 % ointment 1 applic TP DAILY PRN (Reason: rash) Qty: 90 RF: 11 desonide 0.05 % ointment 1 applic TP BID PRN (Reason: skin irritation) Qty: 60 RF: 5 potassium chloride 10 mEq tablet extended release 20 meq PO DAILY Qty: 90 RF: 3 furosemide 20 mg tablet 40 mg PO DAILY Qty: 90 RF: 3 Advair HFA 115-21 mcg/actuation HFA aerosol inhaler 2 puff IH Q12H Qty: 12 RF: 11 (DME) Aerochamber MV Spacer See Dose Instructions .Route .MEDSUPPLY Qty: 1 RF: 0 Nexplanon 68 MG implant 68 mg SQ ONCE Qty: 1 RF: 0 Compression Garments RF: 0 albuterol sulfate 2.5 mg /3 mL (0.083 %) solution for nebulization 2.5 mg IH Q4H PRN (Reason: shortness of breath or wheezing) Qty: 180 RF: 1 ergocalciferol (vitamin D2) 1,250 mcg (50,000 unit) capsule 50,000 unit PO DIRECTED RF: 0 metformin 500 mg tablet extended release 24 hr 1,000 mg PO BID RF: 0 Medical Decision Making Patient is morbidly obese with tachypnea and decreased saturations with ambulation. Has had left calf pain with history of DVT in the past. Woke up with difficulty breathing and hemoptysis with pink-tinged frothy sputum. Denies pain. Is noted to be tachycardic. Presumed pulmonary embolus at this point. Unfortunately, patient weight is greater than 250 kg. She will not be able to be scanned here. industrial engineering technologist has called around the [facility] including [facility] which has a bariatric scanner. Her weight is too great for this scanner as well. [facility] also unable to accommodate. Plan will therefore be to get chest x-ray, laboratory studies, ultrasound left lower extremity. If chest x-ray clear and left lower extremity with DVT presumed pulmonary embolus. CXR appears to have infiltrate which is consistent with Jc's hump involving the right lung. Discussed with patient and hospitalist. Will start heparin and admit for further evaluation and management. Medical Records Medical records reviewed: Yes I reviewed the patient's medical records. Lab Data Lab results reviewed: Yes I reviewed the patient's lab results. ECG Data Attestation: I personally reviewed and interpreted this ECG (s) as follows: Prior ECG tracings: not available for review Interpretation: See EKG HPI General Mode of arrival: ambulatory . Date/Time Provider Initiated Documentation: 10/16/20 05:30 . Limitations to Documentation: no limitations . Information obtained by: patient, RN notes reviewed and old records reviewed . HPI Narrative: Patient presents to ED with onset of shortness of breath when she woke up this morning. Has also developed cough with hemoptysis. Denies having any chest pain or back pain. Denies any trauma. Has not been ill prior. She has had left calf pain for the last few days. Was supposed to see primary care today for scheduled physical exam and was going to discuss with PCP the leg pain. She does have prior history of DVT with . She is not currently on anticoagulation. She did not sustain pulmonary embolus at that time. She becomes significantly short of breath with exertion since waking up this morning. Related Data Home Medications Medication Instructions Recorded Confirmed Nexplanon 68 mg SQ ONCE #1 implant 09/21/15 10/16/20 albuterol sulfate 90 mcg/actuation 2 puff IH Q4H PRN #18 gm 07/10/18 10/16/20 aerosol inhaler albuterol sulfate 2.5 mg IH Q4H PRN #180 ml 10/24/18 10/16/20 desonide 0.05 % topical ointment 1 applic TP BID PRN #60 gm 04/02/19 05/12/20 mometasone 0.1 % topical ointment 1 applic TP DAILY PRN #90 gm 04/02/19 05/12/20 furosemide 20 mg tablet 40 mg PO DAILY #90 tab 02/17/20 10/16/20 potassium chloride 10 mEq 20 meq PO DAILY #90 tab 02/17/20 10/16/20 tablet,extended release fluticasone propionate 115 2 puff IH Q12H #12 gm 03/30/20 10/16/20 mcg-salmeterol 21 mcg/actuation HFA inhaler inhalational spacing device #1 each 03/30/20 05/12/20 mupirocin 2 % topical ointment 1 applic TOPICAL BID #15 g 05/04/20 10/16/20 ergocalciferol (vitamin D2) 50,000 unit PO DIRECTED 10/16/20 10/16/20 metformin 1,000 mg PO BID 10/16/20 10/16/20 Previous Rx's Medication Instructions Recorded albuterol sulfate 90 mcg/actuation 2 puff IH Q4H PRN #18 gm 07/10/18 aerosol inhaler albuterol sulfate 2.5 mg IH Q4H PRN #180 ml 10/24/18 desonide 0.05 % topical ointment 1 applic TP BID PRN #60 gm 04/02/19 mometasone 0.1 % topical ointment 1 applic TP DAILY PRN #90 gm 04/02/19 furosemide 20 mg tablet 40 mg PO DAILY #90 tab 02/17/20 potassium chloride 10 mEq 20 meq PO DAILY #90 tab 02/17/20 tablet,extended release fluticasone propionate 115 2 puff IH Q12H #12 gm 03/30/20 mcg-salmeterol 21 mcg/actuation HFA inhaler inhalational spacing device #1 each 03/30/20 mupirocin 2 % topical ointment 1 applic TOPICAL BID #15 g 05/04/20 Allergies Allergy/AdvReac Type Severity Reaction Status Date / Time nickel Allergy Intermediate Blistering Verified 10/16/20 06:12 and shedding skin strawberry Allergy Intermediate HIVES Verified 10/16/20 06:12 oxycodone AdvReac Severe SEVERE Verified 10/16/20 06:12 NAUSEA/SHAKES erythromycin base AdvReac Intermediate VOMITING Verified 10/16/20 06:12 adhesive AdvReac Mild Verified 10/16/20 06:12 influenza virus vaccine, AdvReac Verified 10/16/20 06:12 specific Review of Systems Narrative: 05/13 Review of Systems completed and is negative except as stated above in HPI (Systems reviewed: Const, Eyes, ENT, Resp, CV, GI, , MSK, Skin, Neuro) PFSH Medical History Asthma DVT (deep vein thrombosis) in (03/13/14) Dysfunctional uterine bleeding 2011- began missing months then having menorrhagia. Eval 2011 Nl HgbA1c, TSH, ES 11mm. PCOS on pelvic u/s. No EMBx. Rx with cyclic Norethindrone. Gastroesophageal reflux disease Morbid obesity 06/2013 BMI 62 Polycystic ovarian syndrome Surgical History section (10/15/14) Family History Mother Diabetes Depression Heart disease Father Hearing loss Essential hypertension COPD (chronic obstructive pulmonary disease) Depression Heart disease Asthma Brother No problems noted. Grandfather Heart disease Grandfather Hearing loss Heart disease Grandmother Diabetes Essential hypertension Heart disease Hyperlipidemia Grandmother Scarlet fever Shingles Gout Essential hypertension COPD (chronic obstructive pulmonary disease) Depression Heart disease Asthma Maternal Aunt Personal history of malignant neoplasm BREAST Maternal Cousin Heart failure Personal history of malignant neoplasm SKIN PATERNAL GREAT GRANDMOTHER Dementia FAMILY HISTORY Heart failure Crohn disease Maternal Cousin Crohn disease Maternal Cousin Colitis Social History Smoking/Tobacco Use Status: Never Smoking risk assessment performed?: Yes Alcohol Intake: current Alcohol Intake frequency: holidays/special occasions only Drug use: Never Substance use type: does not use Household members: other Details: 3 Number of Children: 0 current occupation: WEB SERVICES DEVELOPER Pets and animals: Yes Pets and animals: cat(s) Frequency: does not exercise Tianna/Religious: No preference Special tianna needs: No Seatbelt use: sometimes Do you feel safe at home: Yes Do you feel safe in your relationship?: Yes Female Reproductive History Menstrual control method: implanted (New Nexplano inserted today LOT# [id number] EXP 08/2020 BY SANA VELAZCO CNM) Exam Narrative Exam Narrative: Const: Morbidly obese female in NAD but tachypneic walking into the ED. HEENT: NC/AT. Normal facial exam. Eyes: Normal conjunctiva and sclera. Neck: Supple. Trachea midline. Lungs: Tachypneic. Lungs are clear. Cor: RRR without murmur/gallop. Good radial pulses. GI: Soft. Nontender. Neuro: A+O x 3. Normal speech, mentation, gait. Cranial nerves II - XII grossly intact. No gross motor or sensory deficit. Ext: Left-sided calf tenderness. Skin: Warm and dry without rash.
--- NOTE | 2020-10-16 05:30 | RT.EKG_ITS ---
APPROVED REPORT Exam: Resting ECG Patient Location: E HR:107 bpm ECG Measurements Heart Rate 107 AXIS ND 142 P 63 QRSd 91 QRS 61 QT 364 T 18 QTc 486 Conclusion Sinus tachycardia...rate> 99 Normal [place] Otherwise normal ECG
--- NOTE | 2020-10-16 06:15 | DI.US_ITS ---
EXAM: US LOWER EXTREMITY VENOUS LT CLINICAL HISTORY: leg pain; history of DVT. TECHNIQUE: Lower extremity venous ultrasound performed using grayscale, color-flow, and spectral Do ppler analysis. COMPARISON: No exams were available for comparison FINDINGS: The exam is somewhat limited by patient body habitus. The common femoral, femoral and popliteal vein s demonstrate normal compressibility, augmentation, and color Doppler. The posterior tibial veins are patent. No saphenous vein thrombosis or other superficial venous thrombosis is seen. No hematoma o r Hooker's cyst is seen. IMPRESSION: Negative lower extremity ultrasound. No evidence of DVT. DATA REPOSITORY:
--- NOTE | 2020-10-16 06:15 | DI.RAD_ITS ---
EXAM: XR CHEST 2V PA LATERAL INDICATION: SOB. COMPARISON: CR XR CHEST 2V PA LATERAL from 05/31/2018 CR XR CHEST 2V PA LATERAL from 05/31/2018 TECHNIQUE: 2D digital imaging was performed. FINDINGS: The exam is limited by patient body habitus. The heart size is within normal limits. There is a d ensity in the right upper lobe, new since 2018, which could represent atelectasis, infiltrate, scarri ng or mass. The lungs are otherwise clear. No effusions are seen. IMPRESSION: Right upper lobe opacity could represent infiltrate versus scarring. DATA REPOSITORY: RADIATION DOSE DELIVERED:
[2020-10-16 06:28] LABS: Abs Immature Grans 0.04 10^3/uL (0.0-0.06); Absolute Basophil Count 0.02 10^3/uL (0.0-0.2); Absolute Eosinophil Count 0.13 10^3/uL (0.0-0.7); Absolute Lymphocyte Count 1.82 10^3/uL (1.2-3.4); Absolute Monocyte Count 0.61 10^3/uL (0.1-0.8); Absolute Neutrophil Count 4.79 10^3/uL (1.2-6.7); Basophils % 0.3; Eosinophils % 1.8; HCT 44.5 % (36.0-46.0); Immature Grans % 0.5; Lymphocytes % 24.6; MCH 25.1 pg (27.0-33.0); MCHC 29.2 % (32.0-36.0); MCV 85.9 fL (80-95); Monocytes % 8.2; Neutrophils % 64.6; Nucleated RBC 0 %; Platelet Count 191 10^3/uL (130-400); RBC 5.18 10^6/uL (3.93-5.22); RDW 15.7 % (11.7-14.6); RDW-SD 49.2 fL; WBC 7.41 10^3/uL (4.4-10.8)
[2020-10-16 06:41] LABS: PTT Activated 26.1 sec (21.0-27.5); Prothrombin Time 10.1 sec (9.3-11.0)
[2020-10-16 06:49] LABS: ALT 25 U/L (14-59); AST 13 U/L (15-37); Albumin 3.2 g/dL (3.4-5.0); Alkaline Phosphatase 63 U/L (46-116); Anion Gap 6.8 mmol/L (3-11); BUN 14 mg/dL (7-18); Bilirubin, Total 0.7 mg/dL (0.2-1.0); CO2 33.2 mmol/L (21.0-32.0); Calcium 8.8 mg/dL (8.5-10.1); Chloride 103 mmol/L (98-107); Glucose 125 mg/dL (74-106); Magnesium 1.9 mg/dL (1.8-2.4); NT-proBNP 119 pg/mL (<300); Sodium 143 mmol/L (136-145); Total Protein 7.8 g/dL (6.4-8.2)
[2020-10-16 06:56] LABS: Troponin I < 0.05 ng/mL (<0.06)
[2020-10-16 06:58] LABS: HCG Qual (Serum) Negative
[2020-10-16 09:11] LABS: Source Nasal/Nares
--- NOTE | 2020-10-16 13:58 | HPE_ITS ---
Date of service: 10/16/20 Time of Service: 12:30 Assessment and Plan Assessment and plan (1) Lymphedema: Status: Acute Assessment and plan: Sees PT for treatment and interittent wraps (2) Acute dyspnea: Status: Acute Assessment and plan: Small amount of blood tinged sputum x 1. Central substernal feeling of congestion. She states this feels different than her previous episodes of bronchitis. Unable to perform a CTA chest of V/Q scan d/t her wt. Discuss with her whether presumptive tx with an AC is appropriate or not; would require life-long tx given this is her second episode; previous DVT. Risk of thrombus/embolism d/t wt, low mobility, Nexplanon implanted contraception. (3) Hemoptysis: Status: Acute Assessment and plan: One very small episode of blood tinged sputum (4) Morbid obesity: Status: Chronic Assessment and plan: Risk factor for DVT, pulmonary embolism History of Present Illness History of Present Illness Chief Complaint: Dyspnea Narrative: This is a 40 yo female with a PMH of DVT during , mobid obesity,lymphedema, GERD, PCOS, mod persistent asthma. She presented to the ED with onset of shortness of breath when she woke up the morning of admission. She felt like she was drowning. Has also developed cough and expectorate thick phlegm with a small amount of blood noted x 1. Denied chest pain or back pain. Denied any trauma. Has not been ill prior. She has had left calf pain for the last few days. She was scheduled to see primary care on day of admission for scheduled physical exam and was going to discuss the leg pain. In the ED her WBC count was normal, Hgb normal at 13. D/t her wt of 261.8 kg, the ED provider related that inquiries were made at other local medical centers to see if their CT scanner tables were equipped to support her wt and they supposedly did not. LLE ultrasound showed no DVT. Review of Systems All systems reviewed & are unremarkable except as noted in HPI and below PFSH Medical History Asthma DVT (deep vein thrombosis) in (03/13/14) Dysfunctional uterine bleeding 2010- began missing months then having menorrhagia. Eval 2011 Nl HgbA1c, TSH, ES 11mm. PCOS on pelvic u/s. No EMBx. Rx with cyclic Norethindrone. Gastroesophageal reflux disease Morbid obesity 06/2013 BMI 62 Polycystic ovarian syndrome Surgical History section (10/15/14) Family History Mother Diabetes Depression Heart disease Father Hearing loss Essential hypertension COPD (chronic obstructive pulmonary disease) Depression Heart disease Asthma Brother No problems noted. Grandfather Heart disease Grandfather Hearing loss Heart disease Grandmother Diabetes Essential hypertension Heart disease Hyperlipidemia Grandmother Scarlet fever Shingles Gout Essential hypertension COPD (chronic obstructive pulmonary disease) Depression Heart disease Asthma Maternal Aunt Personal history of malignant neoplasm BREAST Maternal Cousin Heart failure Personal history of malignant neoplasm SKIN PATERNAL GREAT GRANDMOTHER Dementia FAMILY HISTORY Heart failure Crohn disease Maternal Cousin Crohn disease Maternal Cousin Colitis Social History Smoking/Tobacco Use Status: Never Smoking risk assessment performed?: Yes Alcohol Intake: current Alcohol Intake frequency: holidays/special occasions only Drug use: Never Substance use type: does not use Household members: other Details: 3 Number of Children: 0 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[employer] Pets and animals: Yes Pets and animals: cat(s) Frequency: does not exercise Tianna/Temple: No preference Special tianna needs: No Seatbelt use: sometimes Do you feel safe at home: Yes Do you feel safe in your relationship?: Yes Female Reproductive History Menstrual control method: implanted (New Nexplano inserted today LOT# [id number] EXP 08/2020 BY SANA VELAZCO CNM) Meds Home Medications and Allergies Allergies Allergy/AdvReac Type Severity Reaction Status Date / Time nickel Allergy Intermediate Blistering Verified 10/16/20 06:12 and shedding skin strawberry Allergy Intermediate HIVES Verified 10/16/20 06:12 oxycodone AdvReac Severe SEVERE Verified 10/16/20 06:12 NAUSEA/SHAKES erythromycin base AdvReac Intermediate VOMITING Verified 10/16/20 06:12 adhesive AdvReac Mild Verified 10/16/20 06:12 influenza virus vaccine, AdvReac Verified 10/16/20 06:12 specific Home Medications Medication Instructions Recorded Confirmed Type Nexplanon 68 mg SQ ONCE #1 implant 09/21/15 10/16/20 History Compression Garments 01/21/16 04/02/19 Clinic albuterol sulfate 90 mcg/actuation 2 puff IH Q4H PRN #18 gm 07/10/18 10/16/20 Rx aerosol inhaler albuterol sulfate 2.5 mg IH Q4H PRN #180 ml 10/24/18 10/16/20 Rx desonide 0.05 % topical ointment 1 applic TP BID PRN #60 gm 04/02/19 05/12/20 Rx mometasone 0.1 % topical ointment 1 applic TP DAILY PRN #90 gm 04/02/19 05/12/20 Rx furosemide 20 mg tablet 40 mg PO DAILY #90 tab 02/17/20 10/16/20 Rx potassium chloride 10 mEq 20 meq PO DAILY #90 tab 02/17/20 10/16/20 Rx tablet,extended release fluticasone propionate 115 2 puff IH Q12H #12 gm 03/30/20 10/16/20 Rx mcg-salmeterol 21 mcg/actuation HFA inhaler inhalational spacing device #1 each 03/30/20 05/12/20 Rx mupirocin 2 % topical ointment 1 applic TOPICAL BID #15 g 05/04/20 10/16/20 Rx amoxicillin-pot clavulanate 1 tab PO BID #14 tab 10/16/20 Rx [Augmentin] apixaban [Eliquis] See Rx Instructions .ROUTE 10/16/20 Rx .COMPLEX #70 tab ergocalciferol (vitamin D2) 50,000 unit PO DIRECTED 10/16/20 10/16/20 History metformin 1,000 mg PO BID 10/16/20 10/16/20 History Exam Const General: cooperative and no acute distress Nutritional Appearance: obese Orientation: alert and oriented x3 Eyes Sclera: sclerae normal Pupils: PERRL Resp Effort & Inspection: normal respiratory effort Auscultation: clear to auscultation bilaterally and other (distant breath sounds) Cardio Rate: regular rate Rhythm: regular rhythm Heart Sounds: S1 normal and S2 normal GI Inspection: obesity Palpation: soft and nontender Skin General skin exam: no rashes or lesions noted and erythema (Left anterior-medial ankle) Extrem General: no pedal edema, calf tenderness on the left and other (BLE lymphedema with thickened/firm dermis) Psych Appearance: grossly normal Speech and Movement: speech and movement normal Affect: normal affect Results Labs Result diagrams: 10/16/20 06:05 10/16/20 06:05 Labs: Laboratory Results - last 24 hr 10/16/20 10/16/20 10/16/20 06:05 06:05 06:05 WBC 7.41 RBC 5.18 Hgb 13.0 Hct 44.5 MCV 85.9 MCH 25.1 L MCHC 29.2 L RDW 15.7 H Plt Count 191 MPV 11.0 Immature Gran % 0.5 Neutrophils % 64.6 Lymphocytes % 24.6 Monocytes % 8.2 Eosinophils % 1.8 Basophils % 0.3 Nucleated RBC % 0 Absolute Neutrophils 4.79 Absolute Lymphocytes 1.82 Absolute Monocytes 0.61 Absolute Eosinophils 0.13 Absolute Basophils 0.02 PT 10.1 INR 1.0 APTT 26.1 Sodium 143 Potassium 4.0 Chloride 103 Carbon Dioxide 33.2 H Anion Gap 6.8 BUN 14 Creatinine 1.0 Estimated GFR/1.73 m2 >= 60.00 Glucose 125 H Calcium 8.8 Magnesium 1.9 Total Bilirubin 0.7 AST 13 L ALT 25 Alkaline Phosphatase 63 Troponin I < 0.05 NT-Pro-B Natriuret Pep 119 Total Protein 7.8 Albumin 3.2 L Serum HCG, Qual COVID-19 Source 10/16/20 10/16/20 06:05 08:03 WBC RBC Hgb Hct MCV MCH MCHC RDW Plt Count MPV Immature Gran % Neutrophils % Lymphocytes % Monocytes % Eosinophils % Basophils % Nucleated RBC % Absolute Neutrophils Absolute Lymphocytes Absolute Monocytes Absolute Eosinophils Absolute Basophils PT INR APTT Sodium Potassium Chloride Carbon Dioxide Anion Gap BUN Creatinine Estimated GFR/1.73 m2 Glucose Calcium Magnesium Total Bilirubin AST ALT Alkaline Phosphatase Troponin I NT-Pro-B Natriuret Pep Total Protein Albumin Serum HCG, Qual Negative COVID-19 Source Nasal/nares Last Vital Signs Temp 37.3 C 10/16/20 09:41 Pulse 99 H 10/16/20 09:41 Resp 20 10/16/20 09:41 BP 156/97 H 10/16/20 09:41 Pulse Ox 91 L 10/16/20 09:41 COVID-19 Screening Have you, or household traveled for leisure in last 14 days?: No Had IN PERSON contact w/suspected or confirmed C-19 person: No
--- NOTE | 2020-10-16 13:59 | DSE_ITS ---
Date of service: 10/16/20 Time of Service: 13:59 DS: Diagnosis Discharge Diagnosis (1) Acute dyspnea: Status: Acute (2) Hemoptysis: Status: Acute (3) DVT (deep vein thrombosis) in : Status: Chronic (4) Morbid obesity: Status: None (5) Moderate persistent asthma: Status: Acute (6) Lymphedema: Status: Acute Discharge Plan Disposition Patient Disposition: HOME Condition: Stable Discharge Details Reason For Visit: Dyspnea Admit Date/Time: 10/16/20 08:00 Admit Provider: Karan Aguilar Attending Provider: Karan Aguilar [facility] Course: This is a 40 yo female with a PMH of DVT during , mobid obesity,lymphedema, GERD, PCOS, mod persistent asthma. She presented to the ED with onset of shortness of breath when she woke up the morning of admission. She felt like she was drowning. Has also developed cough and expectorate thick phlegm with a small amount of blood noted x 1. Denied chest pain or back pain. Denied any trauma. Has not been ill prior. She has had left calf pain for the last few days. She was scheduled to see primary care on day of admission for scheduled physical exam and was going to discuss the leg pain. In the ED her WBC count was normal, Hgb normal at 13. D/t her wt of 261.8 kg, the ED provider related that inquiries were made at other local medical centers to see if their CT scanner tables were equipped to support her wt and they supposedly did not. LLE ultrasound showed no DVT. She had no further episodes of sputum tinged with blood, no gris hemoptysis. The choice was to treat empirically given the signs and symptoms that could be consistent with a pulmonary embolism or find a place that could provide im aging/CTA chest. [facility] has the capability of performing a CTA in someone with her weight. After much discussion with the patient the decision was to anticoagulate her and schedule an outpatient CTA chest. The findings of the scan will determine if she continues on AC or not. With growing number of studies/findings that support the use of DOACs in the morbidly obese, the decision was made to initiate Eliquis. She will discuss whether or not to remove her Nexplenon control implant with her PCP. Again, outpt CTA chest to be scheduled at [facility] Follow up with PCP in 1-2 weeks. Home Meds and New Rx's Prescriptions: New Eliquis 5 mg Tablet See Rx Instructions .ROUTE .COMPLEX Qty: 70 RF: 0 amoxicillin-pot clavulanate [Augmentin] 875-125 mg tablet 1 tab PO BID Qty: 14 RF: 0 Continued mupirocin 2 % ointment 1 applic topical BID Qty: 15 RF: 0 albuterol sulfate [Ventolin HFA] 90 mcg/actuation HFA aerosol inhaler 2 puff IH Q4H PRN (Reason: shortness of breath or wheezing) Qty: 18 RF: 11 mometasone 0.1 % ointment 1 applic TP DAILY PRN (Reason: rash) Qty: 90 RF: 11 desonide 0.05 % ointment 1 applic TP BID PRN (Reason: skin irritation) Qty: 60 RF: 5 potassium chloride 10 mEq tablet extended release 20 meq PO DAILY Qty: 90 RF: 3 furosemide 20 mg tablet 40 mg PO DAILY Qty: 90 RF: 3 Advair HFA 115-21 mcg/actuation HFA aerosol inhaler 2 puff IH Q12H Qty: 12 RF: 11 (DME) Aerochamber MV Spacer See Dose Instructions .Route .MEDSUPPLY Qty: 1 RF: 0 Nexplanon 68 MG implant 68 mg SQ ONCE Qty: 1 RF: 0 Compression Garments RF: 0 albuterol sulfate 2.5 mg /3 mL (0.083 %) solution for nebulization 2.5 mg IH Q4H PRN (Reason: shortness of breath or wheezing) Qty: 180 RF: 1 ergocalciferol (vitamin D2) 1,250 mcg (50,000 unit) capsule 50,000 unit PO DIRECTED RF: 0 metformin 500 mg tablet extended release 24 hr 1,000 mg PO BID RF: 0 Discharge Instructions Instructions: Pulmonary Embolism (DC) Stand Alone Forms: Nursing Discharge Form Referrals: Jorje Oh [ [facility]ICIAN] - 10/23/20 8:20 am Activity:: Activity as Tolerated Equipment/Supplies:: No Equipment Needed Diet:: Normal Diet Discharge Orders Discharge Orders: Discharge Order (Routine); Ordered 10/16/20 Ordered By: Karan Aguilar Discharge Data Discharge Date/Time-TO BE ENTERED AT DEPARTURE: 10/16/20 15:13 DS: Summary Time Spent with Patient providing and/or coordinating discharge services: Greater than 30 minutes Status at Discharge Functional status at discharge: independent ambulation Overall status at discharge: patient is progressing back to baseline Mental Status: mental status grossly normal Speech and Movement: speech and movement normal Mood: congruent mood Affect: normal affect Exam Const General: cooperative and no acute distress Resp Effort & Inspection: able to speak in complete sentences (with mild shortness of air; speaks rapidly) Auscultation: clear to auscultation bilaterally and diminished lung sounds Cardio Rate: regular rate Rhythm: regular rhythm Heart Sounds: S1 normal and S2 normal GI Inspection: obesity Palpation: soft and nontender Extrem General: calf tenderness on the left and other (BLE lymphema) Psych Appearance: grossly normal Mental Status: mental status grossly normal Speech and Movement: speech and movement normal Mood: congruent mood Affect: normal affect DS: Data Vitals/I&O Vitals and I&O: Vital Signs Temperature 37.3 C 10/16/20 09:41 Temperature Source Temporal Artery Scan 10/16/20 09:41 Pulse 99 H 10/16/20 09:41 Pulse Rhythm Regular 10/16/20 09:43 Pulse 105 H 10/16/20 07:40 Respiratory Rate 20 10/16/20 09:41 Respiratory Effort 10/16/20 09:43 Respiratory Depth Normal 10/16/20 09:43 Respiratory Pattern Normal 10/16/20 06:18 Blood Pressure 156/97 H 10/16/20 09:41 Blood Pressure Mean 84 10/16/20 07:01 Blood Pressure Position Sitting 10/16/20 05:37 Pulse Oximetry 91 L 10/16/20 09:41 Oxygen Delivery Method Room Air 10/16/20 09:41 Oxygen Flow Rate 0 10/16/20 09:41 Pain Level 0 10/16/20 09:41 Intake & Output 10/15/20 10/16/20 10/16/20 23:59 11:59 23:59 Intake Total Balance Weight 261.8 kg Intake: IV Other: Urine Appearance Clear Data Completed and Pending Labs on day of discharge: Labs from last 24 hours 10/16/20 10/16/20 10/16/20 15:00 08:03 06:05 WBC RBC Hgb Hct MCV MCH MCHC RDW Plt Count MPV Immature Gran % Neutrophils % Lymphocytes % Monocytes % Eosinophils % Basophils % Nucleated RBC % Absolute Neutrophils Absolute Lymphocytes Absolute Monocytes Absolute Eosinophils Absolute Basophils PT INR APTT Pending Sodium Potassium Chloride Carbon Dioxide Anion Gap BUN Creatinine Estimated GFR/1.73 m2 Glucose Calcium Magnesium Total Bilirubin AST ALT Alkaline Phosphatase Troponin I NT-Pro-B Natriuret Pep Total Protein Albumin Serum HCG, Qual Negative COVID-19 Source Nasal/nares SARS-CoV-2 (PCR) Pending 10/16/20 10/16/20 10/16/20 06:05 06:05 06:05 WBC 7.41 RBC 5.18 Hgb 13.0 Hct 44.5 MCV 85.9 MCH 25.1 L MCHC 29.2 L RDW 15.7 H Plt Count 191 MPV 11.0 Immature Gran % 0.5 Neutrophils % 64.6 Lymphocytes % 24.6 Monocytes % 8.2 Eosinophils % 1.8 Basophils % 0.3 Nucleated RBC % 0 Absolute Neutrophils 4.79 Absolute Lymphocytes 1.82 Absolute Monocytes 0.61 Absolute Eosinophils 0.13 Absolute Basophils 0.02 PT 10.1 INR 1.0 APTT 26.1 Sodium 143 Potassium 4.0 Chloride 103 Carbon Dioxide 33.2 H Anion Gap 6.8 BUN 14 Creatinine 1.0 Estimated GFR/1.73 m2 >= 60.00 Glucose 125 H Calcium 8.8 Magnesium 1.9 Total Bilirubin 0.7 AST 13 L ALT 25 Alkaline Phosphatase 63 Troponin I < 0.05 NT-Pro-B Natriuret Pep 119 Total Protein 7.8 Albumin 3.2 L Serum HCG, Qual COVID-19 Source SARS-CoV-2 (PCR) [facility] Medical History Asthma DVT (deep vein thrombosis) in (03/13/14) Dysfunctional uterine bleeding 2010- began missing months then having menorrhagia. Eval 2011 Nl HgbA1c, TSH, ES 11mm. PCOS on pelvic u/s. No EMBx. Rx with cyclic Norethindrone. Gastroesophageal reflux disease Morbid obesity 06/2013 BMI 62 Polycystic ovarian syndrome Surgical History section (10/15/14) Family History Mother Diabetes Depression Heart disease Father Hearing loss Essential hypertension COPD (chronic obstructive pulmonary disease) Depression Heart disease Asthma Brother No problems noted. Grandfather Heart disease Grandfather Hearing loss Heart disease Grandmother Diabetes Essential hypertension Heart disease Hyperlipidemia Grandmother Scarlet fever Shingles Gout Essential hypertension COPD (chronic obstructive pulmonary disease) Depression Heart disease Asthma Maternal Aunt Personal history of malignant neoplasm BREAST Maternal Cousin Heart failure Personal history of malignant neoplasm SKIN PATERNAL GREAT GRANDMOTHER Dementia FAMILY HISTORY Heart failure Crohn disease Maternal Cousin Crohn disease Maternal Cousin Colitis Social History Smoking/Tobacco Use Status: Never Smoking risk assessment performed?: Yes Alcohol Intake: current Alcohol Intake frequency: holidays/special occasions only Drug use: Never Substance use type: does not use Household members: other Details: 3 Number of Children: 0 current occupation: [employer] Pets and animals: Yes Pets and animals: cat(s) Frequency: does not exercise Tianna/Episcopalian: No preference Special tianna needs: No Seatbelt use: sometimes Do you feel safe at home: Yes Do you feel safe in your relationship?: Yes Female Reproductive History Menstrual control method: implanted (New Nexplano inserted today LOT# [id number] EXP 08/2020 BY SANA VELAZCO CNM)
[2020-10-16] MEDS: Normal Saline Flush 10 ML SYR IVP (14:05)
[2020-10-16] MEDS: cefTRIAXone 1 GM/50 ML BAG IVPB (14:05)
[2020-10-16] MEDS: Apixaban 5 MG TAB 10 MG PO (14:06)
[2020-10-16 15:02] LABS: COVID-19 PCR Negative (Negative)
--- NOTE | 2020-10-22 12:18 | CMPROGNOTE_ITS ---
Care Management Progress Note At MD request, CM faxed Eliquis coupon card to [facility] in [facility] to offset patient prescription costs.
== END 2020-10-16 15:13 | disposition home or self-care (01) | DRG 176 ==
LOC: ER 08:20 → MS 10:50
PROVIDERS: Admitting Provider Family Medicine; Emergency Provider Emergency Medicine; PCP Family Medicine; Visit Provider Family Medicine
DX: I26.99 Other pulmonary embolism without acute cor pulmonale (principal); R04.2 Hemoptysis; Z68.44 Body mass index [BMI] 60.0-69.9, adult; E66.01 Morbid (severe) obesity due to excess calories; Z86.718 Personal history of other venous thrombosis and embolism; K21.9 Gastro-esophageal reflux disease without esophagitis; I89.0 Lymphedema, not elsewhere classified; E28.2 Polycystic ovarian syndrome; J45.40 Moderate persistent asthma, uncomplicated
CPT/HCPCS: 36415; 80053; 87635; 93005; 96365; 96376; 99222; 99239; 99285; 71046; 83735; 83880; 84484; 84703; 85025; 85610; 85730; 93010; 93971; J0696

== ENCOUNTER 2020-10-23 15:30 | Outpatient (CLI) | payer BC, SELFPAY ==
[2020-10-23 17:14] LABS: D-Dimer 950 ng/mlFEU (<500)
== END 2020-10-23 15:31 | disposition home or self-care (01) ==
LOC: LBO 15:31
PROVIDERS: PCP Family Medicine; Visit Provider Family Medicine
DX: R06.09 Other forms of dyspnea (principal)
CPT/HCPCS: 36415; 85379

== ENCOUNTER 2020-11-18 16:51 | Outpatient (REF) | payer BC, SELFPAY ==
[2020-11-20 10:01] LABS: COVID-19 RT-PCR UVMMC Result Negative (Negative)
== END 2020-11-18 16:52 | disposition home or self-care (01) ==
LOC: LBN 16:51
PROVIDERS: PCP Family Medicine; Visit Provider Nurse Practitioner Family
DX: Z20.822 Contact with and (suspected) exposure to COVID-19 (principal)
CPT/HCPCS: U0003

== ENCOUNTER 2021-03-12 02:37 | Outpatient (CLI) | payer BC, SELFPAY ==
[2021-03-12 16:21] LABS: Hemoglobin A1C 6.1 % (<5.7)
== END 2021-03-12 02:38 | disposition home or self-care (01) ==
LOC: LBO 02:37
PROVIDERS: PCP Family Medicine; Visit Provider Nurse Practitioner
DX: E11.9 Type 2 diabetes mellitus without complications (principal)
CPT/HCPCS: 36415; 83036

== ENCOUNTER 2021-03-19 04:19 | Outpatient (CLI) | payer BC, SELFPAY ==
--- NOTE | 2021-03-19 09:00 | DI.RAD_ITS ---
Exam(s) XR LUMBAR SPINE AP, LAT EXAM: XR LUMBAR SPINE AP, LAT CLINICAL HISTORY: back pain,m54.9. TECHNIQUE: 2D digital imaging was performed. COMPARISON: CR XR CHEST 2V PA LATERAL from 10/16/2020 CR XR CHEST 2V PA LATERAL from 10/16/2020 FINDINGS: AP and lateral views of the lumbosacral spine reveal no evidence of compression fracture or listhesis nor obvious pars defects. Mild disc space narrowing at L5-S1 level noted. No osseous lesions. Sac roiliac joints appear unremarkable. IMPRESSION: DATA REPOSITORY: RADIATION DOSE DELIVERED:
== END 2021-03-19 04:39 ==
PROVIDERS: PCP Family Medicine; Visit Provider Physician Assistant
DX: M48.07 Spinal stenosis, lumbosacral region (principal)
CPT/HCPCS: 72100

== ENCOUNTER 2021-05-28 20:11 | Emergency (ER) | payer BC, SELFPAY ==
[2021-05-28 20:15] VITALS: BP 136/53; PULSE 104; RESP 24; TEMP 37; O2SAT 97
--- NOTE | 2021-05-28 20:26 | ED.GENADUL_ITS ---
Discharge Plan Disposition Patient Disposition: HOME Condition: Stable Discharge Details Clinical Impression: Acute lumbar back pain, Chronic back pain Primary Care Provider: Jorje Oh ED Provider: Lizy Zamorano Home Meds and New Rx's Prescriptions: New methocarbamol 750 mg tablet 1,500 mg PO TID PRN (Reason: muscle spasm) Qty: 14 RF: 0 Continued mometasone 0.1 % ointment 1 applic TP DAILY PRN (Reason: rash) Qty: 90 RF: 11 calcipotriene 0.005 % ointment 1 applic topical DAILY Qty: 120 RF: 2 tramadol 50 mg tablet 50 mg PO Q8H PRN (Reason: pain) Qty: 10 RF: 0 (DME) Aerochamber MV Spacer See Dose Instructions .Route .MEDSUPPLY Qty: 1 RF: 0 mupirocin 2 % ointment 1 applic topical BID Qty: 15 RF: 0 betamethasone valerate 0.1 % cream 1 applic topical BID Qty: 15 RF: 0 Nexplanon 68 MG implant 68 mg SQ ONCE Qty: 1 RF: 0 Compression Garments RF: 0 albuterol sulfate 2.5 mg /3 mL (0.083 %) solution for nebulization 2.5 mg IH Q4H PRN (Reason: shortness of breath or wheezing) Qty: 180 RF: 1 albuterol sulfate [Ventolin HFA] 90 mcg/actuation HFA aerosol inhaler 2 puff IH Q4H PRN (Reason: shortness of breath or wheezing) Qty: 18 RF: 11 furosemide 20 mg tablet 40 mg PO DAILY Qty: 90 RF: 3 potassium chloride 10 mEq tablet extended release 20 meq PO DAILY Qty: 90 RF: 3 Eliquis 5 mg tablet 5 mg PO BID Qty: 60 RF: 2 lisinopril 5 mg tablet 5 mg PO DAILY Qty: 30 RF: 2 metformin 500 mg tablet extended release 24 hr 1,000 mg PO BID RF: 0 Discharge Instructions Instructions: Low Back Strain (ED) Additional Instructions: Your x-rays here are reassuring with no acute fractures noted. I am concerned that a large portion of this may be associated with muscle spasm. Please encourage hydration. Please encourage gentle stretching and frequent ambulation. You may try topical options such as lidocaine patches. Please continue with Tylenol to help discomfort. You may use the tramadol as previously prescribed. As discussed, I am prescribing methocarbamol which is a muscle relaxant. Please not take this with the tramadol as they both can cause sedation. I have prescribed you to able to take 2 tabs at one time but as you have found medications so sedating historically, you may want to start with just 1 tablet. Please not drink alcohol while taking this, do not drive will take this medication. Please follow-up with primary care in the next 1 to 2 weeks for reevaluation. If you develop change in your bowel or bladder habits, sensation changes, weakness or other new/worsening symptoms please seek care urgently once again. Referrals: Jorje Oh MD [Primary Care Provider] - Discharge Data Discharge Date/Time-TO BE ENTERED AT DEPARTURE: 05/28/21 22:21 Medical Decision Making Patient is a pleasant 41 year old female presenting today for acute on chronic back pain. Has had chronic back pain that has limited her abilityto stand for any length of time for the past 6 years after fall while . States that she developed a new back pain after sitting for prolonged period on a metal chair 5 days ago. Initially, pain was in her buttock, like a bruise but has steadily increased. She is now having more wide spread pain that has increased. She was seen at urgent care, patient was ordered Tramadol. As she was initially driving, has not taken the Tramadol yet. Was ordered to have XR but states she missed the DI department being open. Here for evaluation and XR. On exam, patient is morbidly obese. Her exam is limited seconedary to body habitus. Gait is normal. No saddle paresthesias. Strength equal in BLE. Pain is maximal over b oth glutes more than midline pain. No objective signs of trauma. Exam is not consistent with cauda equina at this time. Will obtain XR ordered by urgent care provider. Will give one dose of Tramadol here, she states her is driving her home. FINDINGS: Bones/joints: The vertebral body heights are preserved. No significant degenerative changes. No evidence of acute osseous injury of the lumbar spine. Soft tissues: Unremarkable. Other findings: Lateral radiograph is severely limited secondary to motion artifact. IMPRESSION: No evidence of acute osseous injury of the lumbar spine. Discussed with patient. This pain is acute on chronic. I advised she discuss the chronicity with PCP further. She states she is very sedentary secondary to this pain. She has tried PT in the past with poor outcome. With the description and progression of pain, advised more likely to be spasm. Will prescribe methocarbamol but advised she note take this with the Tramadol. Advised heat/ice, stretching, ambulation. She has been working on weight loss, encour aged this as it may be contribuing to her chornic back pain. Encouraged close f/u with PCP next week. Return precautions were discussed, in particular signs of neurologic compromise. All of her quesitons and concerns were addressed, she is in agrement with this plan. HPI General Mode of arrival: ambulatory . Date/Time Provider Initiated Documentation: 05/28/21 20:26 . Limitations to Documentation: no limitations . Information obtained by: patient and RN notes reviewed . History of Present Illness 41 year old F presents to the emergency department with the chief complaint of lumbar back pain, described as severe, with intensity rated at 10. Quality is described as aching, and is localized to the back. Patient reports no radiation. Patient started experiencing this day(s) (5) and it has been constant. Immobilization improves symptom(s), Movement worsens symp toms . Patient notes no other symptoms.. Patient did receive the following treatments prior to arrival, none Related Data Home Medications Medication Instructions Recorded Confirmed Nexplanon 68 mg SQ ONCE #1 implant 09/21/15 05/28/21 albuterol sulfate 2.5 mg IH Q4H PRN #180 ml 10/24/18 05/28/21 inhalational spacing device #1 each 03/30/20 03/26/21 metformin 1,000 mg PO BID 10/16/20 05/28/21 albuterol sulfate 90 mcg/actuation 2 puff IH Q4H PRN #18 gm 10/28/20 05/28/21 aerosol inhaler furosemide 20 mg tablet 40 mg PO DAILY #90 tab 11/26/20 05/28/21 potassium chloride 10 mEq 20 meq PO DAILY #90 tab 11/26/20 05/28/21 tablet,extended release betamethasone valerate 0.1 % 1 applic TOPICAL BID #15 g 03/11/21 05/28/21 topical cream mupirocin 2 % topical ointment 1 applic TOPICAL BID #15 g 03/11/21 05/28/21 apixaban 5 mg tablet 5 mg PO BID #60 tab 04/21/21 05/28/21 mometasone 0.1 % topical ointment 1 applic TP DAILY PRN #90 gm 05/19/21 05/28/21 calcipotriene 0.005 % topical 1 applic TOPICAL DAILY #120 g 05/20/21 05/28/21 ointment lisinopril 5 mg tablet 5 mg PO DAILY #30 tab 05/21/21 05/28/21 methocarbamol 1,500 mg PO TID PRN #14 tab 05/28/21 tramadol 50 mg tablet 50 mg PO Q8H PRN #10 tab 05/28/21 05/28/21 Previous Rx's Medication Instructions Recorded albuterol sulfate 2.5 mg IH Q4H PRN #180 ml 10/24/18 inhalational spacing device #1 each 03/30/20 albuterol sulfate 90 mcg/actuation 2 puff IH Q4H PRN #18 gm 10/28/20 aerosol inhaler furosemide 20 mg tablet 40 mg PO DAILY #90 tab 11/26/20 potassium chloride 10 mEq 20 meq PO DAILY #90 tab 11/26/20 tablet,extended release betamethasone valerate 0.1 % 1 applic TOPICAL BID #15 g 03/11/21 topical cream mupirocin 2 % topical ointment 1 applic TOPICAL BID #15 g 03/11/21 apixaban 5 mg tablet 5 mg PO BID #60 tab 04/21/21 mometasone 0.1 % topical ointment 1 applic TP DAILY PRN #90 gm 05/19/21 calcipotriene 0.005 % topical 1 applic TOPICAL DAILY #120 g 05/20/21 ointment lisinopril 5 mg tablet 5 mg PO DAILY #30 tab 05/21/21 methocarbamol 1,500 mg PO TID PRN #14 tab 05/28/21 tramadol 50 mg tablet 50 mg PO Q8H PRN #10 tab 05/28/21 Allergies Allergy/AdvReac Type Severity Reaction Status Date / Time nickel Allergy Intermediate Blistering Verified 05/28/21 20:28 and shedding skin strawberry Allergy Intermediate HIVES Verified 05/28/21 20:28 oxycodone AdvReac Severe SEVERE Verified 05/28/21 20:28 NAUSEA/SHAKES erythromycin base AdvReac Intermediate VOMITING Verified 05/28/21 20:28 adhesive AdvReac Mild Verified 05/28/21 20:28 influenza virus vaccine, AdvReac Verified 05/28/21 20:28 specific General SENIA: 2 Review of Systems Constitutional Constitutional: Reports as per HPI, Denies chills and Denies fever(s) Cardiovascular Cardiovascular: Denies chest pain Respiratory Respiratory: Denies cough Gastrointestinal Gastrointestinal: Denies abdominal pain, Denies change in bowel habits and Denies fecal incontinence Genitourinary Genitourinary: Reports as per HPI, Denies urinary incontinence and Denies urinary hesitancy Musculoskeletal Musculoskeletal: Reports as per HPI, Reports back pain, Denies muscle weakness, Denies numbness, Reports radiating pain into limb (left hip), Reports stiffness and Denies tingling Integumentary/Breasts Skin/Breast: Reports as per HPI and Denies rash Neurologic Neurologic: Reports as per HPI, Denies localized weakness, Denies numbness, Denies radicular pain, Denies sensory deficit, Denies tingling and Denies p aresthesias [facility] Medical History Asthma DVT (deep vein thrombosis) in (03/13/14) Dysfunctional uterine bleeding 2010- began missing months then having menorrhagia. Eval 2011 Nl HgbA1c, TSH, ES 11mm. PCOS on pelvic u/s. No EMBx. Rx with cyclic Norethindrone. Gastroesophageal reflux disease Morbid obesity 06/2013 BMI 62 Polycystic ovarian syndrome Surgical History section (10/15/14) Family History Mother Diabetes Depression Heart disease Father Hearing loss Essential hypertension COPD (chronic obstructive pulmonary disease) Depression Heart disease Asthma Brother No problems noted. Grandfather Heart disease Grandfather Hearing loss Heart disease Grandmother Diabetes Essential hypertension Heart disease Hyperlipidemia Grandmother Scarlet fever Shingles Gout Essential hypertension COPD (chronic obstructive pulmonary disease) Depression Heart disease Asthma Maternal Aunt Personal history of malignant neoplasm BREAST Maternal Cousin Heart failure Personal history of malignant neoplasm SKIN PATERNAL GREAT GRANDMOTHER Dementia FAMILY HISTORY Heart failure Crohn disease Maternal Cousin Crohn disease Maternal Cousin Colitis Social History Smoking/Tobacco Use Status: Never Smoking risk assessment performed?: Yes Alcohol Intake: current Alcohol Intake frequency: holidays/special occasions only Drug use: Never Substance use type: does not use Household members: other Details: 3 Number of Children: 0 current occupation: SENIOR SUPPORT ANALYST Pets and animals: Yes Pets and animals: cat(s) Frequency: does not exercise Tianna/Christianity: No preference Special tianna needs: No Seatbelt use: sometimes Do you feel safe at home: Yes Do you feel safe in your relationship?: Yes Female Reproductive History Menstrual control method: implanted (New Nexplano inserted today LOT# [id number] EXP 08/2020 BY SANA VELAZCO CNM) Exam Const General: cooperative, healthy appearing, uncomfortable, no acute distress, well developed and well groomed Nutritional Appearance: obese morbidly obese Orientation: alert and awake Eyes General: appearance normal, both eyes and all related structures Neck Neck: normal visual inspection, full ROM, no lymphadenopathy and no meningeal signs Resp Effort & Inspection: normal respiratory effort and able to speak in complete sentences Auscultation: clear to auscultation bilaterally, no rales, no rhonchi and no wheezes Cardio Rate: regular rate Rhythm: regular rhythm Heart Sounds: S1 normal and S2 normal GI Inspection: obesity Palpation: soft and nontender Back/Spine/Pelvis Back: no CVA tenderness Back/spine/pelvis image: 1. Area of discomfort. Pain is maximal over the buttocks. Not see any ecchymosis or evidence of trauma. Patient does have full running horizontally above the buttock secondary to her body habitus. She does have some skin breakdown in this area. No evidence to suggest infection. Patient is aware of this breakdown and is having this followed by her primary care. No significant midline tenderness. Difficult to palpate for any bony abnormality given body habitus. She has no saddle paresthesias. 5-5 strength equal bilaterally. 2+ distal pulses in lower extremities. Skin General skin exam: other (skin break down on back as above, no deep wounds, no surrounding erythema) Neuro General: patient alert and patient awake Cognition: normal cognition Speech: speech normal Gait: normal gait Motor: muscle tone normal throughout, strength 5/5 throughout, no movement abnormalities noted and no fasciculations Sensory Exam: no sensory deficits noted (no saddle paresthesias) Extrem General: normal to inspection, full ROM, capillary refill normal, no joint enlargement, no pedal edema, no calf tenderness and normal gait Psych Appearance: grossly normal and well kempt Mental Status: mental status grossly normal Speech and Movement: speech and movement normal
--- NOTE | 2021-05-28 20:30 | DI.RAD_ITS ---
Exam(s) XR LUMBAR SPINE COMPLETE EXAM: XR LUMBAR SPINE COMPLETE CLINICAL HISTORY: back pain after prolonged sitting. TECHNIQUE: 2D digital imaging was performed. COMPARISON: CR XR LUMBAR SPINE AP, LAT from 03/19/2021 FINDINGS: Quality study limited by body habitus. No evidence of obvious acute fracture nor listhesis. No obvious disc space narrowing. Bone density is normal. No osseous lesions. IMPRESSION: No obvious lumbar spine fractures evident. DATA REPOSITORY: RADIATION DOSE DELIVERED:
[2021-05-28] MEDS: traMADol 50 MG TAB PO (21:07)
--- NOTE | 2021-05-28 21:08 | NUR.NOTE ---
To DI per cart with transporter, accompanied by this RN. Patient agrees to stand for imaging. Nursing Note:
--- NOTE | 2021-05-28 21:57 | DI.VRAD_ITS ---
PROCEDURE INFORMATION: Exam: XR Lumbosacral Spine Exam date and time: 05/28/2021 8:41 PM Age: 41 years old Clinical indication: Other: Pain TECHNIQUE: Imaging protocol: XR of the lumbosacral spine. Views: 4 or 5 views. COMPARISON: CR XR LUMBAR SPINE AP, LAT 03/19/2021 3:42 PM FINDINGS: Bones/joints: The vertebral body heights are preserved. No significant degenerative changes. No evidence of acute osseous injury of the lumbar spine. Soft tissues: Unremarkable. Other findings: Lateral radiograph is severely limited secondary to motion artifact. IMPRESSION: No evidence of acute osseous injury of the lumbar spine. Dictated and Authenticated by: Сергей Layton MD. Ordering:NALLELY Medel MD
[2021-05-28 22:18] VITALS: BP 170/84; PULSE 100; RESP 22; TEMP 37; O2SAT 96
== END 2021-05-28 22:21 | disposition home or self-care (01) ==
PROVIDERS: Emergency Provider Physician Assistant; PCP Family Medicine
DX: M54.50 Low back pain, unspecified (principal); G89.29 Other chronic pain
CPT/HCPCS: 99283; 72110

== ENCOUNTER 2021-05-31 10:21 | Outpatient (REF) | payer BC, SELFPAY ==
[2021-06-02 14:42] LABS: COVID-19 RT-PCR UVMMC Result Negative (Negative)
== END 2021-05-31 10:22 | disposition home or self-care (01) ==
LOC: LBN 10:21
PROVIDERS: PCP Family Medicine; Visit Provider Family Medicine
DX: Z20.822 Contact with and (suspected) exposure to COVID-19 (principal); R50.9 Fever, unspecified
CPT/HCPCS: U0003

== ENCOUNTER 2021-06-02 01:13 | Outpatient (CLI) | payer BC, SELFPAY ==
--- NOTE | 2021-06-02 06:30 | DI.RAD_ITS ---
Exam(s) XR SACRUM COCCYX EXAM: XR SACRUM COCCYX CLINICAL HISTORY: intractable SACRAL BACK PAIN, M53.3. TECHNIQUE: 2D digital imaging was performed. COMPARISON: No exams were available for comparison FINDINGS: Images limited due to body habitus. No fractures evident on the frontal view. Sacroiliac joints carleen ear unremarkable. No obvious hip fractures. However, on the lateral view there is suggestion of a lower sacral fracture at the junction with the coccyx. Visualized L4-5 and L5-S1 disc spaces exhibit normal height. No listhesis IMPRESSION: There appears to be a fracture at the junction of the sacrum and coccyx. DATA REPOSITORY: RADIATION DOSE DELIVERED:
== END 2021-06-02 01:33 ==
PROVIDERS: PCP Family Medicine; Visit Provider Nurse Practitioner Family
DX: M53.3 Sacrococcygeal disorders, not elsewhere classified (principal); S32.2XXA Fracture of coccyx, initial encounter for closed fracture; X58.XXXA Exposure to other specified factors, initial encounter
CPT/HCPCS: 72220

== ENCOUNTER 2021-06-11 13:12 | Outpatient (REF) | payer BC, SELFPAY ==
[2021-06-12 15:09] LABS: COVID-19 RT-PCR UVMMC Result Negative (Negative)
== END 2021-06-11 13:13 | disposition home or self-care (01) ==
LOC: LBN 13:12
PROVIDERS: PCP Family Medicine; Visit Provider Nurse Practitioner Family
DX: Z20.822 Contact with and (suspected) exposure to COVID-19 (principal); R05.8 Other specified cough
CPT/HCPCS: U0003

== ENCOUNTER 2021-07-27 03:01 | Outpatient (CLI) | payer BC, SELFPAY ==
[2021-07-27 07:36] LABS: HCT 46.3 % (36.0-46.0); HGB 13.4 g/dL (11.2-15.7); MCH 24.6 pg (27.0-33.0); MCHC 28.9 % (32.0-36.0); MCV 85.1 fL (80-95); MPV 10.7 fL (8.0-11.0); Platelet Count 197 10^3/uL (130-400); RBC 5.44 10^6/uL (3.93-5.22); RDW 16.6 % (11.7-14.6); RDW-SD 51.1 fL; WBC 7.54 10^3/uL (4.4-10.8)
[2021-07-27 07:50] LABS: Hemoglobin A1C 5.7 % (<5.7)
[2021-07-27 08:16] LABS: Glucose 98 mg/dL (74-106)
[2021-07-29 00:25] LABS: Vitamin D 25 Total 18.1 ng/mL (30-100)
== END 2021-07-27 03:02 | disposition home or self-care (01) ==
LOC: LBO 03:01
PROVIDERS: PCP Family Medicine; Visit Provider Internal Medicine
DX: R53.83 Other fatigue (principal); E66.01 Morbid (severe) obesity due to excess calories; Z68.45 Body mass index [BMI] 70 or greater, adult
CPT/HCPCS: 36415; 82306; 82947; 85027; 82530; 83036

== ENCOUNTER 2021-08-06 16:06 | Outpatient (REF) | payer BC, SELFPAY ==
--- NOTE | 2021-08-06 15:50 | PAPFT_PTH ---
PATIENT: Stefany Shepard LOC: [facility] U#:[id number] AGE/SX: 41/F ROOM: RE08/06/[address]: Rupa De Santiago MD : 1980 BED: DIS: 08/06/2021 SPEC #: [id number] RECD: 08/06/21 18:23 STATUS: BRODERICK REQ #: [id number] ANH: 08/06/21 15:[address]: Rupa De Santiago DEPT: [facility] Cytology RECD BY: Vanessa Chen ENTERED: 08/06/21 18:23 SP TYPE: PAPFT OT DR: Jorje Oh MD Tissues: 1 - CX/ENDOCX FOR PAP SMEARS Procedures: PAP THIN PREP/UVM Screening HPV DNA PROBE Comments: [id number]
== END 2021-08-06 16:07 | disposition home or self-care (01) ==
LOC: LBN 16:06
PROVIDERS: PCP Family Medicine; Visit Provider Obstetrics & Gynecology
DX: Z12.4 Encounter for screening for malignant neoplasm of cervix (principal); Z11.51 Encounter for screening for human papillomavirus (HPV)
CPT/HCPCS: 88142; 87624

== ENCOUNTER 2021-08-18 12:40 | Outpatient (REF) | payer BC, SELFPAY ==
[2021-08-21 00:18] LABS: Cortisol, Saliva 113 ng/dL
== END 2021-08-18 12:41 | disposition home or self-care (01) ==
LOC: LBN 12:40
PROVIDERS: PCP Family Medicine; Visit Provider Internal Medicine
DX: E66.01 Morbid (severe) obesity due to excess calories (principal)
CPT/HCPCS: 82530

== ENCOUNTER 2021-11-05 02:03 | Outpatient (CLI) | payer BC, SELFPAY ==
[2021-11-05] MEDS: Albuterol HFA 18 GM 200 PUFF INH IH (16:07)
[2021-11-05] MEDS: Inhaler, Assist Device 1 EACH MC (16:07)
== END 2021-11-05 02:04 | disposition home or self-care (01) ==
PROVIDERS: PCP Family Medicine; Visit Provider Student in an Organized Health Care Education/Training Program
DX: J45.40 Moderate persistent asthma, uncomplicated (principal)
CPT/HCPCS: 94060; 94726; 94729

== ENCOUNTER 2022-02-16 01:24 | Outpatient (CLI) | payer SELFPAY | END 2022-02-16 01:25 | disposition home or self-care (01) | PROVIDERS: Visit Provider Obstetrics & Gynecology Gynecologic Oncology ==

== ENCOUNTER 2022-02-18 02:29 | Outpatient (CLI) | payer BC, SELFPAY ==
[2022-02-18 16:47] LABS: Hemoglobin A1C 5.8 % (<5.7)
[2022-02-18 17:16] LABS: ALT 20 U/L (14-59); AST 16 U/L (15-37); Albumin 3.3 g/dL (3.4-5.0); Alkaline Phosphatase 49 U/L (46-116); Anion Gap 7.9 mmol/L (3-11); BUN 17 mg/dL (7-18); Bilirubin, Total 0.6 mg/dL (0.2-1.0); CO2 27.1 mmol/L (21.0-32.0); CREATININE 0.8 mg/dL (0.55-1.02); Calcium 9.2 mg/dL (8.5-10.1); Chloride 100 mmol/L (98-107); Folate 13.2 ng/mL (8.6-20.0); Glucose 91 mg/dL (74-106); Potassium 4.2 mmol/L (3.5-5.1); Sodium 135 mmol/L (136-145); TSH 2.09 uIU/mL (0.36-3.74); Total Protein 7.8 g/dL (6.4-8.2); Vitamin B12 290 pg/mL (193-986)
[2022-02-18 18:00] LABS: Iron 38 ug/dL (50-170); Total Iron Binding Capacity 295 ug/dL (250-450); Transferrin Sat 13 % (15-50)
[2022-02-21 06:02] LABS: Vitamin D 25 Total 25.9 ng/mL (30-100)
[2022-02-21 11:29] LABS: Parathyroid Hormone,Intact 86 pg/mL (19-88)
[2022-02-26 09:50] LABS: Thiamine (Vitamin B1), WB 133 nmol/L (70-180)
== END 2022-02-18 02:30 | disposition home or self-care (01) ==
LOC: LBO 02:29
PROVIDERS: PCP Family Medicine; Visit Provider Obstetrics & Gynecology Gynecologic Oncology
DX: E66.01 Morbid (severe) obesity due to excess calories (principal); E55.9 Vitamin D deficiency, unspecified; R73.01 Impaired fasting glucose; Z68.45 Body mass index [BMI] 70 or greater, adult
CPT/HCPCS: 36415; 80053; 82306; 82607; 82746; 83036; 83540; 83550; 83970; 84425; 84443

== ENCOUNTER → 2022-03-24 01:00 | Outpatient (CLI) | payer BC, SELFPAY ==
--- NOTE | 2022-03-24 07:30 | DI.MAMMO_ITS ---
Exam(s) MG MAMMO SCREENING 60 MIN DUR EXAM: MG MAMMO SCREENING 60 MIN DUR CLINICAL HISTORY: breast cancer screening,Z12.39 TECHNIQUE: Mammograms were interpreted according to the usual protocol including computer analysis w Spiced Bits CAD system, tomosynthesis and C-view imaging. COMPARISON: FINDINGS: The breasts are of moderate density with fairly symmetrical distribution of fibroglandular tissue. N o dominant mass or clumped microcalcification is identified in either breast. There is a nodular radiodensity of the left breast seen on CC and MLO views, this measures about 11 m illimeters in diameter. I am uncertain whether this may represent a nipple versus intramammary mass. I would request the patient return for views of the left breast a nipple marker. If this is an int ramammary mass, additional evaluation with spot views and ultrasound would be recommended. No other significant findings in either breast. IMPRESSION: Additional mammographic views of the left breast requested as described above. Breast ultrasound may be indicated as well depending on the results of the additional mammographic views. BI-RADS Category 0 - Assessment Incomplete: Need additional imaging evaluation Breast Density - Category B - Scattered areas of fibroglandular density
== END ==
PROVIDERS: PCP Family Medicine; Visit Provider Family Medicine
DX: Z12.31 Encounter for screening mammogram for malignant neoplasm of breast (principal); R92.8 Other abnormal and inconclusive findings on diagnostic imaging of breast
CPT/HCPCS: 77063; 77067

== ENCOUNTER → 2022-03-31 04:26 | Outpatient (CLI) | payer BC, SELFPAY ==
--- NOTE | 2022-03-31 | DI.MAMMO_ITS ---
Exam(s) MAMMO SCREEN CALL BACK UNI US BREAST LT COMPLETE EXAM: MAMMO SCREEN CALL BACK UNI -LEFT AND COMPLETE LEFT BREAST ULTRSOUND CLINICAL HISTORY: NODULAR RADIODENSITY LEFT BREAST. TECHNIQUE: Unilateral spot mammographic images obtained with 3D tomosynthesisand utilizing computer aided detection (CAD). . Complete left breast Ultrasound was also performed, including all 4 quadrants, the retroareolar regio n, and the ipsilateral axilla. COMPARISON: Prior mammograms were reviewed. This additional imaging was performed due to findings described on the recent BASELINE screening mammogram of 03/24/2022. FINDINGS: DIAGNOSTIC LEFT BREAST MAMMOGRAM: Additional mammographic views performed todaywith nipple marker in place. Images performed with nipple marker in place reveal that the nodular density seen on the mammogram do es not correspond to her nipple. It appears somewhat less discernible on additional spot compression view. COMPLETE LEFT BREAST ULTRASOUND: Ultrasound performed today reveals no ominous solid and no cystic findings in all 4 quadrants. There is a subtle finding at the 6 o'clock position, 1 cm from nipple. However, real-time scanning is not convincing for a true nodule at this level. IMPRESSION: Benign-appearing findings. Please note that this patient informs me that she had significant non pen etrate trauma to the left breast approximately 2 months ago which resulted in significant bruising. Therefore, there is a significant possibility that this finding on the mammogram is a resolving hemat sukh. Appropriate follow-up , as explained by myself to the patient today, is repeat left breast mammogram in 3 months. The patient was informed of these findings and recommendations prior to leaving the department today. BI-RADS Category 3 - 3 month - Probably Benign Finding: Recommend follow-up mammography in 3 months Breast Density - Category B - Scattered areas of fibroglandular density Breast density Category C or D implies that the patient has dense breast tissue. Dense breast tissue can make it harder to find cancer on a mammogram. Dense breast tissue is also associated with an incr eased risk of breast cancer. This information about the result of the mammogram report was provided to the patient to raise their awareness. Use this report when you speak with the patient about their risks for breast cancer, which includes their family history. At that time, you may recommend additional screening tests (Ultrasoun d or MRI) as these tests may add significant information. A negative radiographic report should not delay biopsy if a dominant or clinically suspicious mass is present. Up to ten percent of cancers are not identified on mammography. A negative report may reinforce clinical impression. Adenosis and dense breasts may obscure an underlying neoplasm. False positive reports average 6 to 10%. Patient will receive a letter notifying them of these results.
== END ==
PROVIDERS: PCP Family Medicine; Visit Provider Family Medicine
DX: R92.8 Other abnormal and inconclusive findings on diagnostic imaging of breast (principal)
CPT/HCPCS: 76642; 77063; 77067

== ENCOUNTER → 2022-06-08 02:27 | Outpatient (CLI) | payer BC, SELFPAY ==
--- NOTE | 2022-06-08 07:30 | DI.US_ITS ---
Exam(s) US BREAST LT COMPLETE MG MAMMO DIAGNOSTIC UNI EXAM: MG MAMMO DIAGNOSTIC UNI and U/S breast LT complete CLINICAL HISTORY: 3-6 mo f/u,r92.8, abnl lt mammo. TECHNIQUE: Craniocaudal and mediolateral oblique Full Field Digital Mammography views of the left br east with Computer Aided Diagnosis followed by Tomosynthesis and left breast ultrasound. COMPARISON: Comparison is made with prior examinations. FINDINGS: Mammography/Tomosynthesis: Masses/Architectural Distortion: The area of concern is less prominent on the current examination. N o suspicious masses or areas of architectural distortion are seen. Microcalcifictions: No suspicious pleomorphic-type are seen. Skin Thickening/Nipple Retraction: None. Complete left breast US: Echotexture: Normal appearance of the glandular tissue. Shadowing: No suspicious foci. Cyst: None. Solid lesions: None seen. Ductal dilation: None. IMPRESSION: 1. No evidence of malignancy is noted. 2. A six-month follow-up left mammogram is requested for re-evaluation. 3. The findings were discussed with the patient on the date of the examination. BI-RADS Category 3 - 6 month - Probably Benign Finding: Recommend follow-up imaging in 6 months Breast Density - Category B - Scattered areas of fibroglandular density Breast density Category C or D implies that the patient has dense breast tissue. Dense breast tissue can make it harder to find cancer on a mammogram. Dense breast tissue is also associated with an incr eased risk of breast cancer. This information about the result of the mammogram report was provided to the patient to raise their awareness. Use this report when you speak with the patient about their risks for breast cancer, which includes their family history. At that time, you may recommend additional screening tests (Ultrasoun d or MRI) as these tests may add significant information. A negative radiographic report should not delay biopsy if a dominant or clinically suspicious mass is present. Up to ten percent of cancers are not identified on mammography. A negative report may reinforce clinical impression. Adenosis and dense breasts may obscure an underlying neoplasm. False positive reports average 6 to 10%. Patient will receive a letter notifying them of these results.
== END ==
PROVIDERS: PCP Family Medicine; Visit Provider Family Medicine
DX: R92.8 Other abnormal and inconclusive findings on diagnostic imaging of breast (principal); N64.89 Other specified disorders of breast
CPT/HCPCS: 76642; 77061; 77065; G0279

== ENCOUNTER 2022-10-20 03:57 | Outpatient (CLI) | payer BC, SELFPAY ==
--- NOTE | 2022-10-20 14:58 | DI.RAD_ITS ---
Exam(s) XR HEEL RT OS CALCIS EXAM: XR HEEL RT OS CALCIS CLINICAL HISTORY: rt heel pain for one month,M79.673. TECHNIQUE: 2D digital imaging was performed. Two images were obtained. COMPARISON: CR RIGHT FOOT COMPLETE from 12/28/2015 FINDINGS: BONES: No acute fracture is present. No bony destructive lesion is seen. There is a plantar calcanea l spur. There are bony productive changes at the talonavicular joint. JOINTS: No dislocation present. SOFT TISSUE: Normal. IMPRESSION: No acute abnormality. DATA REPOSITORY: RADIATION DOSE DELIVERED:
== END 2022-10-20 04:17 ==
LOC: DI 03:58
PROVIDERS: PCP Family Medicine; Visit Provider Family Medicine
DX: M79.671 Pain in right foot (principal); M77.31 Calcaneal spur, right foot
CPT/HCPCS: 73650

== ENCOUNTER 2022-12-02 01:30 | Outpatient (CLI) | payer BC, SELFPAY ==
[2022-12-06 16:46] LABS: Strawberry, IgE <0.10 kU/L (<0.70)
== END 2022-12-02 01:31 | disposition home or self-care (01) ==
PROVIDERS: PCP Family Medicine; Visit Provider Physician Assistant
DX: T78.1XXA Other adverse food reactions, not elsewhere classified, initial encounter (principal); Z01.82 Encounter for allergy testing
CPT/HCPCS: 36415; 86003

== ENCOUNTER 2022-12-28 07:57 | Day surgery (SDC) | payer BC, SELFPAY ==
[2022-12-28 08:17] VITALS: BP 108/63; PULSE 74; RESP 18; TEMP 36.8; O2SAT 100
[2022-12-28] MEDS: Lactated Ringers 1,000 ML 125 ML IV (09:26)
--- NOTE | 2022-12-28 09:29 | W.ANESPRE ---
General Info Date of Service Date Performed: 12/28/22 Height: 5 ft 5 in Weight: 160.3 kg Body Mass Index (BMI): 58.8 Surgical Procedure: Operation Date: 12/28/22 09:25 Proposed Procedure Side Surgeon p Endometrial Ablation w/Manuel De Santiago MD Meds Allergies and Home Medications Allergies Allergy/AdvReac Type Severity Reaction Status Date / Time nickel Allergy Intermediate Blistering Verified 12/28/22 08:32 and shedding skin strawberry Allergy Intermediate HIVES Verified 12/28/22 08:32 oxycodone AdvReac Severe SEVERE Verified 12/28/22 08:32 NAUSEA/SHAKES erythromycin base AdvReac Intermediate VOMITING Verified 12/28/22 08:32 adhesive AdvReac Mild Verified 12/28/22 08:32 influenza virus vaccine, AdvReac Verified 12/28/22 08:32 specific Home Medication Medication Instructions Recorded inhalational spacing device #1 ea 03/30/20 (Aerochamber MV spacer) betamethasone valerate 0.1 % 1 applic topical BID #15 grams 03/11/21 topical cream calcipotriene 0.005 % topical 1 applic topical DAILY #120 grams 05/20/21 ointment etonogestrel 68 mg subdermal 68 mg subdermal ONCE ##1 06/18/21 implant (Nexplanon) albuterol sulfate 2.5 mg/3 mL 2.5 mg (3 mL) inhalation Q4H PRN 08/20/21 (0.083 %) solution for nebulization shortness of breath or wheezing #180 mL fluticasone furoate 200 1 inh inhalation DAILY #3 ea 01/18/22 mcg-vilanterol 25 mcg/dose inhalation powder (Breo Ellipta) omeprazole 20 mg capsule,delayed 20 mg PO DAILY 08/24/22 release ursodiol 200 mg capsule 250 mg PO BID 08/24/22 lisinopril 10 1 tab PO DAILY #90 tabs 08/25/22 mg-hydrochlorothiazide 12.5 mg tablet apixaban 5 mg tablet (Eliquis) 5 mg PO BID #60 tabs 09/05/22 epinephrine 0.3 mg/0.3 mL 0.3 mg (0.3 mL) IM ONCE PRN 10/12/22 injection, auto-injector (EpiPen) anaphylaxis #2 ea albuterol sulfate 90 mcg/actuation 2 puff inhalation Q4H PRN 12/14/22 aerosol inhaler (Ventolin HFA) shortness of breath or wheezing #18 grams plzosjza-rgvgnekl-xzyp 45 mg-folic 4 cap PO DAILY 12/27/22 acid 800 mcg-vit K 120 mcg capsule (Bariatric Multivitamins) sennosides 8.6 mg tablet (Senokot) 8.6 mg PO QMWF 12/28/22 Current Visit Medications: Current Medications Generic Name Dose Route Start Last Admin Trade Name Nataliya PRN Reason Stop Dose Admin Ringer's Solution 1,000 mls @ 125 mls/hr 12/28/22 06:00 IV 12/28/22 16:00 INFUSION EDWIN IV Miscellaneous Supplies 1 each 12/28/22 06:00 Iv Access IV 12/28/22 23:59 DIRECTED EDWIN Sodium Chloride 0 ml 12/28/22 06:00 Normal Saline Flush 10 Ml Syr IV 12/28/22 23:59 PRN PRN Sodium Chloride 0 ml 12/28/22 06:00 Normal Saline 10 Ml Vial IJ 12/28/22 23:59 DIRECTED PRN Sterile Water 0 ml 12/28/22 06:00 Water,Injection,Sterile 10 Ml Vial IJ 12/28/22 23:59 DIRECTED PRN PFSH Active Problems Active Problems: Problem Status Onset Code Dysfunctional uterine bleeding Moderate persistent asthma J45.40 Intertrigo L30.4 Type 2 diabetes mellitus E11.9 Psoriasis of scalp L40.9 Chronic back pain M54.9, G89.29 Sleep apnea G47.30 Medical History Medical History Abdominal wall hernia Elevated blood pressure reading without diagnosis of hypertension Elevated liver enzymes (10/14/14) Family history of coronary arteriosclerosis Food allergy Fractured coccyx Gastroesophageal reflux disease H/O deep venous thrombosis Heel pain History of pulmonary embolism 09/2020 Lymphedema Morbid obesity 06/2013 BMI 62 Otosclerosis Pedal edema Plantar fasciitis Polycystic ovarian syndrome SOB (shortness of breath) on exertion Medical History Comments:: Father did not go under anesthesia well nor did he wake up well. Surgical History Surgical History section (10/15/14) History of bariatric surgery Tobacco Smoking/Tobacco Use Status: Never Passive smoking exposure: No Alcohol Alcohol Intake: former Substance Use Substance use: Never Substance use type: does not use Prental History History Para 1 Hx # Term Pregnancies 1 Multiple births Hx # Pregnancies Ectopic pregnancies AB induced Hx Number of Living Children 1 AB spontaneous Vital Signs and Lab Results Vital Signs Most Recent Vital Signs in EMR: Most Recent Vital Signs Temp Pulse Resp BP Pulse Ox 36.8 C 74 18 108/63 100 12/28/22 08:17 12/28/22 08:17 12/28/22 08:17 12/28/22 08:17 12/28/22 08:17 Point of Care Results Point of Care Results: POC- Test(urine) Negative 12/28/22 09:07 Lab Results Blood Type / Crossmatch: No Data to Display Complete Blood Count: No Data to Display Complete Metabolic Panel: No Data to Display Liver Function Panel: No Data to Display Coagulation Panel: No Data to Display Cardiac Panel: No Data to Display Arterial Blood Gas: No Data to Display Venous Blood Gas: No Data to Display Pancreas Panel: No Data to Display Thyroid Panel: No Data to Display Infectious Disease: No Data to Display Blood Cultures: No Data to Display Toxicology Panel: No Data to Display Panel: No Data to Display Imaging and Studies Imaging and Studies Study information below may be from another EMR and interpreted by another provider. Please see original notes in EMR for more complete details. EKG Summary: 10/16/2020: ECG Measurements Heart Rate 107 AXIS FL 142 P 63 QRSd 91 QRS 61 QT 364 T18 QTc 486 Conclusion Sinus tachycardia...rate> 99 Normal [place] Otherwise normal ECG Echocardiogram Summary: 03/24/2020: Conclusion This is a technically limited study. Left Ventricle : The left ventricle is normal size. The left ventricular systolic function is normal. The left ventricular ejection fraction is within the normal range. There is normal left ventricular wall thickness. Wall motion appears normal. LVEF is 60%. Right Ventricle : The right ventricle is normal size. The right ventricular systolic function is normal. Atria : The left atrium size is normal. The right atrium size is normal. Valves: There are no hemodynamically significant valvular lesions. Great Vessels : The aortic root is normal in size. The ascending aorta is normal in size. Aortic arch is normal in caliber. IVC is normal in size and collapses >50% with inspiration. Pulmonary Function Summary: 06/20/2018: IMPRESSION Moderately severe obstructive airways disease with no significant bronchodilator response. This is associated with elevated diffusion capacity. This constellation of finding can be seen in asthma. If the diagnosis of asthma is in question, proceeding with Methacholine bronchoprovocation challenge testing may prove to be useful. The slightly low SVC is due to very low ERV, which may be due to the patient's obesity and chest wall restriction. Anesthesia Assessment and Plan Anesthesia History Personal History: Delayed Emergence Family History: Other Exercise Tolerance Exercise Tolerance: Metabolic Equivalents>4 Pertinent Negatives Pertinent Negatives: No Major Cardiovascular Symptoms or Complaints Cardiac & Pulmonary Exam Cardiac Exam: Normal S1/S2 Heart Sounds Pulmonary Exam: Clear Bilateral Breath Sounds Implantable Cardiac Device Does patient have a Pacemaker or an ICD?: No Airway Exam Known Difficult Airway: No Mallampati Class: 3 Mouth Opening: Normal (> 3cm) Thyromental Distance: Greater than 3 cm Neck Range of Motion: Full ROM Neck Circumference: Thick Teeth Condition: Normal Dentition ASA Classification ASA Score: ASA 3 Emergency Case?: No NPO Status NPO Status: NPO Clears >2 hours, Solids >8 hours Status Status: Negative HCG Anesthesia Plan Resuscitation Status: Full Code Anesthesia Technique: MAC Anesthesia Airway Planned: Natural Airway Monitors Used: Standard Monitors
[2022-12-28 09:32] VITALS: BMI 58.8
[2022-12-28] MEDS: Bupivacaine 0.5% Pres-Free 30 ML VIAL (10:40)
[2022-12-28 10:56] VITALS: BP 97/64; PULSE 55; RESP 16; TEMP 36.3; O2SAT 98
--- NOTE | 2022-12-28 11:13 | W.PM.OP ---
Date of service: 12/28/22 Time of Service: 10:30 Operative Note Operative Note DATE OF PROCEDURE: 12/28/22 PRE-OP DIAGNOSIS: Abnormal uterine bleeding PROCEDURE: Dilation and curettage, hysteroscopy, novasure endometrial ablation SURGEON: Rupa De Santiago ANESTHESIA TYPE: Local By Surgeon and MAC Refer to Anesthesia Record ESTIMATED BLOOD LOSS: 20 COMPLICATIONS: None Patient was transported to: PACU Patient's condition: stable Indications: Pt has been having irregular and heavy bleeding for several months since her gastic bypass surgery despite having nexplanon in place. She cannot have estrogen due to h/o PE and declined an IUD. Findings: Normal appearing external genitalia, vagina, cervix and uterine cavity. Uterine cavity visually fully scarred following ablation Procedure Description: After informed consent was signed the patient was taken to the operating room and given monitored anesthesia care.? SCDs were placed on her legs.? She was prepped and draped in the dorsal lithotomy position in the [facility].? A time out was performed. Her bladder was drained of urine if not done just prior to arrival to the room.? Exam under anesthesia revealed normal external genitalia, vagina normal for age. A speculum was placed into the vagina to reveal the cervix.? The anterior lip of the cervix was grasped with a single tooth tenaculum.? [A paracervical block was given with 10ml of 0.25% marcaine.]? The cervical length was measured with a large dilator. The cervix was then dilated until a uterine sound could be inserted to measure the total length. The?cavity length was then calculated at 5cm. The hysteroscope was assembled and the uterine cavity was visualized. No obvious abnormalities were noted. The novasure device was opened and the cavity length set. It was inserted into the endometrial cavity and the width was measured at 4.7cm. The cavity assessment was performed and passed. The device was then deployed for the appropriate amount of time. The device was removed and the wand inspected and appeared thoroughly charred. The hysteroscope was again inserted into the endometrial cavity and it appeared to be thoroughly treated. It was removed from the endometrial cavity. The tenaculum was removed from the cervix with good hemostasis.? The speculum was removed from the vagina. The patient was placed back into the supine position.? She was moved to the stretcher and taken to the recovery room in stable condition.
--- NOTE | 2022-12-28 11:32 | W.ANESPOSTOP ---
Postoperative Evaluation Date, Time and Location Date Performed: 12/28/22 Time Performed: 11:33 Patient Location: Day Surgery Unit Vital Signs Most Recent Imported Vital Signs: Most Recent Vital Signs Temp Pulse Resp BP Pulse Ox 36.3 C L 55 L 16 97/64 L 98 12/28/22 10:56 12/28/22 10:56 12/28/22 10:56 12/28/22 10:56 12/28/22 10:56 Pain Score Most Recent Pain Score: Most Recent Pain Score Pain Level 0 12/28/22 08:17 Assessment Mental Status: Arousable with meaningful communication Airway and Respiratory Function: Patent airway with normal (patient baseline) respiratory exam Cardiovascular Function: Hemodynamically Stable Hydration Status: Adequately Hydrated Nausea & Vomiting: No Nausea or Vomiting Pain: Pt. Denies Any Pain Peripheral Nerve Block: Patient did not receive a nerve block
[2022-12-28 11:40] VITALS: BP 107/69; PULSE 65; RESP 16; TEMP 36.5; O2SAT 98
--- NOTE | 2022-12-28 12:47 | DSU.FORM ---
Addendum entered by Stefany Bustamante RN 12/28/22 14:40: Clarification to addendum: Patient was asked by Remy Finn CRNA after staff had moved patient from the bathroom to the stretcher. Addendum entered by Stefany Bustamante RN 12/28/22 14:01: When patient was asked if she was feeling unwell at all prior to getting up to the bathroom, patient stated I felt like I was totally with the program when we got up, but I don't feel like I am with the program now. Original Note: This RN was notified of this patient in need of cancer genetics assistant by SADDLE STITCHING MACHINE OPERATOR at 1205. Patient was found sitting on floor of DSU unit bathroom. Fall was not witnessed by staff. Patient was sitting on the floor with her gown off and pants and under bar on. Patient was awake but was unaware of falling stating I don't know, I went to pull up my pants and next thing I know I woke up on the floor. Patient had slight discoloration to the midline of her forehead approximately the size of a half dollar, blood present on her inner upper lip, and a 2-2.5 inch laceration under her left eye. Patient was wearing her eye glasses at the time of her fall. Remy Finn CRNA came to bathroom to assist with patient at 1207. Vital signs were obtained and BP was found to be 92/53 and pulse in the 40s. Patient was covered with her gown to minimize exposure to which pt stated Oh I don't care about that. Once you have kids you don't care. 1208 Verbal order from Remy Finn CRNA for 1000ml bag of LR to be hung and infused at rate of open. Verbal order repeated back. 1210 a new 1000ml bag of LR was hung and running at an open rate into left antecubital space. BP and pulse continued to be monitored by staff while working with patient in the bathroom. 1212 BP 110/83 HR 40s while sitting on bathroom floor. 1215 BP 121/82 HR 40s prior to lift from floor to wheelchair. Patient lifted with 3 staff from bathroom floor to wheelchair, patient able to get feet under herself with transition to assist staff. 1222 BP 116/92 HR 40s prior to stand and pivot transfer to stretcher. ER was notified that patient would be transferring to their care for further workup and evaluation. This RN escorted patient with Remy Finn CRNA to room 8 of the ER and report was given to CB Jones for transfer of patient care.
--- NOTE | 2022-12-28 13:30 | W.PM.DSUDISC ---
Date of service: 12/28/22 Time of Service: 12:00 Discharge Plan Disposition Patient Disposition: Home Condition: Stable Discharge Details Attending Provider: Rupa De Santiago Primary Care Provider: Jorje Oh Home Meds and New Rx's Prescriptions: No Action calcipotriene 0.005 % ointment 1 applic topical DAILY Qty: 120 2RF Rx Instructions: rub in gently and completely Bariatric Multivitamins 45 mg iron- 800 mcg-120 mcg capsule 4 cap PO DAILY Patient Comments: 12/27/22- Pt takes four Bariatric fusion vitamins daily. (DME) Aerochamber MV Spacer See Dose Instructions .Route .MEDSUPPLY Qty: 1 0RF Dose Instruction: As directed Rx Instructions: As directed betamethasone valerate 0.1 % cream 1 applic topical BID Qty: 15 0RF Rx Instructions: apply to left great toe cuticle 2x daily x 7 days fluticasone furoate-vilanterol [Breo Ellipta] 200-25 mcg/dose blister with device 1 inh inhalation DAILY Qty: 3 12RF epinephrine [EpiPen] 0.3 mg/0.3 mL auto-injector 0.3 mg IM ONCE PRN (Reason: anaphylaxis) Qty: 2 0RF omeprazole 20 mg capsule,delayed release(DR/EC) 20 mg PO DAILY ursodiol 200 mg capsule 250 mg PO BID Compression Garments 0RF Rx Instructions: Bilateral lower extremity compression garments 30-40 mm Hg Dx: Bilateral lower extremity lymphedema stage II Nexplanon 68 mg implant 68 mg subdermal ONCE Qty: 1 albuterol sulfate 2.5 mg /3 mL (0.083 %) solution for nebulization 2.5 mg IH Q4H PRN (Reason: shortness of breath or wheezing) Qty: 180 1RF lisinopril-hydrochlorothiazide 10-12.5 mg tablet 1 tab PO DAILY Qty: 90 3RF Eliquis 5 mg tablet 5 mg PO BID Qty: 60 11RF Hold Instructions: Home Medication placed on hold at Doctor's office albuterol sulfate [Ventolin HFA] 90 mcg/actuation HFA aerosol inhaler 2 puff IH Q4H PRN (Reason: shortness of breath or wheezing) Qty: 18 11RF Rx Instructions: Dispense #2 sennosides [Senokot] 8.6 mg Tablet 8.6 mg PO QMWF Discharge Instructions Activity:: Activity as Tolerated Diet:: As Tolerated Discharge Orders Discharge Orders: Discharge Order (Routine); Ordered 12/28/22 Ordered By: Rupa De Santiago Discharge Data Discharge Comment: D/honey to ED for evaluation s/p fall while dressing
--- NOTE | 2022-12-28 13:44 | PDOC.ANES ---
Date of service: 12/28/22 Time of Service: 12:47 Anesthesia Note Report Anesthesia Note: Walking through DSU when i was asked to see a patient who fell in the bathroom. When I arrived patient was sitting up against wall next to toilet. She was pale appearing with eyes closed, but verbal. She has a noted laceration on left cheek with bleeding controlled and blood around left mouth. She denies any obvious loose teeth. She stated she was going to put her pants on after using the toilet and when she bent over to pull pants up she felt lightheaded. She then sat on the chair and then very likely had a syncopal episode and struck face on tile floor given the blood matias on the floor. She woke up and hit the call russell where she was found. She denies neck pain or paresthesia in arms or legs but does have a headache and just feels off. She was placed on VS monitor with noted sinus larry at 40 and lower but acceptable blood pressure. This improved over the next few minutes. She was assisted x3 people to turn while sitting on floor and stand to sit in a wheelchair. She was then reassessed with hemodynamics acceptable, moved to stretcher and then brought to the ED where she would likely receive a head CT, sutures and have her blood sugar tested although she is now mentating appropriately.
== END 2022-12-28 07:58 | disposition home or self-care (01) ==
PROVIDERS: PCP Family Medicine; Visit Provider Obstetrics & Gynecology
PROC: (CPT 58353; principal; 2022-12-28 09:15)
DX: N93.9 Abnormal uterine and vaginal bleeding, unspecified (principal); J45.40 Moderate persistent asthma, uncomplicated; E11.9 Type 2 diabetes mellitus without complications; Z86.711 Personal history of pulmonary embolism; Z98.84 Bariatric surgery status
CPT/HCPCS: 58563; 81025; J2001; J2250; J2405

== ENCOUNTER 2022-12-28 12:37 | Emergency (ER) | payer BC, SELFPAY ==
[2022-12-28] VITALS (41 sets, daily range): BP systolic 95–133; BP diastolic 48–79; PULSE 45–73; RESP 12–24; TEMP 36.9; O2SAT 90–100
--- NOTE | 2022-12-28 12:45 | RT.EKG_ITS ---
APPROVED REPORT Exam: Resting ECG Reason for Exam: Syncopal episode Patient Location: E HR:50 bpm ECG Measurements Heart Rate 50 AXIS LA 176 P 12 QRSd 104 QRS 45 QT 459 T 31 QTc 420 Conclusion Sinus bradycardia...rate< 60 Low voltage, precordial leads...precordial leads <1.0mV sinus larry, normal axis, normal intervals, non ischemic
[2022-12-28] MEDS: Dextrose 25%-Water 10 ML SYR 5 ML IVP (13:10)
[2022-12-28] MEDS: Normal Saline 500 ML 1000 ML IV (13:30)
--- NOTE | 2022-12-28 13:30 | DI.CT_ITS ---
Exam(s) CT HEAD FACIAL WO EXAM: CT HEAD FACIAL WO CLINICAL HISTORY: left orbital lacetion, syncope. TECHNIQUE: Imaging Protocol: Axial computed tomography images with coronal and sagittal reformatted images were created and reviewed COMPARISON: CT HEAD WITHOUT CONTRAST from 10/14/2014 FINDINGS: CT Head: Ventricles and Extra axial spaces: Normal in size and morphology for the patient's age. Hemorrhage: None. Cerebral parenchyma: Normal. Midline shift: None. Brainstem/Cerebellum: Normal. Calvarium: Normal. Visualized Paranasal sinuses/Mastoids: Mucous retention at the floors of the maxillary sinuses. Soft Tissues: Unremarkable. CT Face: Facial Bones: No fracture is noted in facial bones. Sinuses and Mastoids: Unremarkable. Globes, extraocular muscles, optic nerves and retrobulbar fat: Normal. Upper aerodigestive tract: Normal. Mandible and bilateral temporomandibular joints: Normal. Soft tissues: small soft tissue defect seen lateral to the left orbit. IMPRESSION: 1. No acute intracranial process. 2. No acute facial fracture. RADIATION DOSE DELIVERED: 1,793.43mGy.cm Total DLP DATA REPOSITORY: All CT scans at this facility are submitted to the National Radiology Data Registry (NRDR) Dose Index Registry (DIR) with the [employer] ([employer]). RADIATION OPTIMIZATION: All CT scans at this facility use at least one of these dose optimization te chniques: automated exposure control; mA and/or kV adjustment per patient size (includes targeted exa ms where dose is matched to clinical indication); or iterative reconstruction.
[2022-12-28 13:31] LABS: Abs Immature Grans 0.03 10^3/uL (0.0-0.06); Absolute Basophil Count 0.03 10^3/uL (0.0-0.2); Absolute Eosinophil Count 0.12 10^3/uL (0.0-0.7); Absolute Lymphocyte Count 2.47 10^3/uL (1.2-3.4); Absolute Monocyte Count 0.75 10^3/uL (0.1-0.8); Absolute Neutrophil Count 6.15 10^3/uL (1.2-6.7); Basophils % 0.3; Eosinophils % 1.3; HCT 38.5 % (36.0-46.0); HGB 12.4 g/dL (11.2-15.7); Immature Grans % 0.3; Lymphocytes % 25.9; MCH 28.6 pg (27.0-33.0); MCHC 32.2 % (32.0-36.0); MCV 89 fL (80-95); MPV 11.9 fL (8.0-11.0); Monocytes % 7.9; Neutrophils % 64.3; Platelet Count 206 10^3/uL (130-400); RBC 4.34 10^6/uL (3.93-5.22); RDW 14.4 % (11.7-14.6); RDW-SD 46.4 fL; WBC 9.55 10^3/uL (4.4-10.8)
[2022-12-28 13:46] LABS: Magnesium 1.8 mg/dL (1.8-2.4)
[2022-12-28 13:51] LABS: ALT 22 U/L (14-59); AST 15 U/L (15-37); Albumin 2.9 g/dL (3.4-5.0); Alkaline Phosphatase 62 U/L (46-116); Anion Gap 8.8 mmol/L (3-11); BUN 13 mg/dL (7-18); Bilirubin, Total 1.1 mg/dL (0.2-1.0); CO2 28.2 mmol/L (21.0-32.0); CREATININE 0.8 mg/dL (0.55-1.02); Calcium 8.9 mg/dL (8.5-10.1); Chloride 106 mmol/L (98-107); Estimated GFR 94.28 (mL/min/1.73m2); Glucose 115 mg/dL (74-106); Lipase 28 U/L (16-77); Potassium 3.4 mmol/L (3.5-5.1); Sodium 143 mmol/L (136-145); Total Protein 6.6 g/dL (6.4-8.2)
[2022-12-28] MEDS: ACETAMINOPHEN 1,000 MG/100 ML BTL 400 MG IVPB (14:00)
[2022-12-28] MEDS: Lidocaine 1% Multi-Dose 50 ML VIAL IJ (14:20)
--- NOTE | 2022-12-28 15:32 | ED.GENADUL_ITS ---
Discharge Plan Disposition Patient Disposition: Home Discharge Details Clinical Impression: Pre-syncope Primary Care Provider: Jorje Oh ED Provider: Robert Piedra Home Meds and New Rx's Prescriptions: Continued calcipotriene 0.005 % ointment 1 applic topical DAILY Qty: 120 2RF Rx Instructions: rub in gently and completely Bariatric Multivitamins 45 mg iron- 800 mcg-120 mcg capsule 4 cap PO DAILY Patient Comments: 12/27/22- Pt takes four Bariatric fusion vitamins daily. (DME) Aerochamber MV Spacer See Dose Instructions .Route .MEDSUPPLY Qty: 1 0RF Dose Instruction: As directed Rx Instructions: As directed betamethasone valerate 0.1 % cream 1 applic topical BID Qty: 15 0RF Rx Instructions: apply to left great toe cuticle 2x daily x 7 days fluticasone furoate-vilanterol [Breo Ellipta] 200-25 mcg/dose blister with device 1 inh inhalation DAILY Qty: 3 12RF epinephrine [EpiPen] 0.3 mg/0.3 mL auto-injector 0.3 mg IM ONCE PRN (Reason: anaphylaxis) Qty: 2 0RF omeprazole 20 mg capsule,delayed release(DR/EC) 20 mg PO DAILY ursodiol 200 mg capsule 250 mg PO BID Compression Garments 0RF Rx Instructions: Bilateral lower extremity compression garments 30-40 mm Hg Dx: Bilateral lower extremity lymphedema stage II Nexplanon 68 mg implant 68 mg subdermal ONCE Qty: 1 albuterol sulfate 2.5 mg /3 mL (0.083 %) solution for nebulization 2.5 mg IH Q4H PRN (Reason: shortness of breath or wheezing) Qty: 180 1RF lisinopril-hydrochlorothiazide 10-12.5 mg tablet 1 tab PO DAILY Qty: 90 3RF Eliquis 5 mg tablet 5 mg PO BID Qty: 60 11RF Hold Instructions: Home Medication placed on hold at Doctor's office albuterol sulfate [Ventolin HFA] 90 mcg/actuation HFA aerosol inhaler 2 puff IH Q4H PRN (Reason: shortness of breath or wheezing) Qty: 18 11RF Rx Instructions: Dispense #2 sennosides [Senokot] 8.6 mg Tablet 8.6 mg PO QMWF Discharge Instructions Instructions: Near Syncope (ED) Additional Instructions: Suture removal in 5 to 7 days Continue to hydrate and eat Follow-up with your DEPUTY [employer]ER[employer] CHIEF at your scheduled appointment and return earlier should you have new or worsening complaints Referrals: [facility] [Provider Group] Discharge Data Discharge Date/Time-TO BE ENTERED AT DEPARTURE: 12/28/22 17:14 Medical Decision Making <APRIL Vasquez - Last Filed: 12/29/22 20:59> 42-year-old female status post moderate sedation surgery for dysfunctional uterine bleeding with ablation Had a syncopal event during recovery and was sent to the emergency department CT head and facial bones does not show evidence of acute abnormality, labs within normal limits, patient is bradycardiac, this is improving gradually, she feels improvement We have not checked orthostatics EKG shows sinus bradycardia without obvious block Labs are reassuring, specifically no anemia Having some cramping in abdomen, spoke with Dr. Galan, low suspicion for perforation or any other acute abnormality Will continue to monitor for improvement in heart rate, will give 1 more liter of IV fluid Initially gave half an amp of D25 secondary to blood sugar of 76, repeat blood sugar 114 Did have some yogurt, has declining anything else aside from water at this time, of note, status post gastric bypass in June We will plan on discharge if heart rate improves and ambulatory trial successful Medical Records Medical records reviewed: Yes I reviewed the patient's medical records. Lab Data Lab results reviewed: Yes I reviewed the patient's lab results. <Robert Piedra NP - Last Filed: 12/30/22 14:21> 42-year-old female status post moderate sedation surgery for dysfunctional uterine bleeding with ablation Had a syncopal event during recovery and was sent to the emergency department CT head and facial bones does not show evidence of acute abnormality, labs within normal limits, patient is bradycardiac, this is improving gradually, she feels improvement We have not checked orthostatics EKG shows sinus bradycardia without obvious block Labs are reassuring, specifically no anemia Having some cramping in abdomen, spoke with Dr. Galan, low suspicion for perforation or any other acute abnormality Will continue to monitor for improvement in heart rate, will give 1 more liter of IV fluid Initially gave half an amp of D25 secondary to blood sugar of 76, repeat blood sugar 114 Did have some yogurt, has declining anything else aside from water at this time, of note, status post gastric bypass in June We will plan on discharge if heart rate improves and ambulatory trial successful Patient signed out to me by Vanessa CHEN. Please see initial documentation for HPI review of systems work-up and emergency department plan. Patient was able to have full resolution of symptoms and is asymptomatic and had successful ambulatory trial. Patient discharged to continue to stay well- hydrated and have proper nutrition but was encouraged to return for any new or significant worsening of symptoms. After discussion of diagnosis and plan of care patient has no further needs, questions, or concerns and states clear understanding to return to the emergency department for any worsening symptoms. This documentation was generated using ison furnitureation system, please disregard any oddities of phrase or misspellings. HPI <APRIL Vasquez - Last Filed: 12/29/22 20:59> General Date/Time Provider Initiated Documentation: 12/28/22 12:51 . HPI Narrative: This 42-year-old female presents with dysfunctional uterine bleeding status post uterine ablation today. She is being recovered and brought to the bathroom where she had some presyncopal symptoms and subsequent syncopal event after urination. She states she felt tired after. She denies any chest pain or shortness of breath. She did hit her head. She denies any significant headache. She has some cramping in her abdomen reportedly. She denies any vaginal bleeding. She does take Eliquis for history of PE Related Data Home Medications Medication Instructions Recorded Confirmed inhalational spacing device #1 ea 03/30/20 12/28/22 (Aerochamber MV spacer) betamethasone valerate 0.1 % 1 applic topical BID #15 grams 03/11/21 12/28/22 topical cream calcipotriene 0.005 % topical 1 applic topical DAILY #120 grams 05/20/21 12/28/22 ointment etonogestrel 68 mg subdermal 68 mg subdermal ONCE ##1 06/18/21 12/28/22 implant (Nexplanon) albuterol sulfate 2.5 mg/3 mL 2.5 mg (3 mL) inhalation Q4H PRN 08/20/21 12/28/22 (0.083 %) solution for nebulization shortness of breath or wheezing #180 mL fluticasone furoate 200 1 inh inhalation DAILY #3 ea 01/18/22 12/28/22 mcg-vilanterol 25 mcg/dose inhalation powder (Breo Ellipta) omeprazole 20 mg capsule,delayed 20 mg PO DAILY 08/24/22 12/28/22 release ursodiol 200 mg capsule 250 mg PO BID 08/24/22 12/28/22 lisinopril 10 1 tab PO DAILY #90 tabs 08/25/22 12/28/22 mg-hydrochlorothiazide 12.5 mg tablet apixaban 5 mg tablet (Eliquis) 5 mg PO BID #60 tabs 09/05/22 12/28/22 epinephrine 0.3 mg/0.3 mL 0.3 mg (0.3 mL) IM ONCE PRN 10/12/22 12/28/22 injection, auto-injector (EpiPen) anaphylaxis #2 ea albuterol sulfate 90 mcg/actuation 2 puff inhalation Q4H PRN 12/14/22 12/28/22 aerosol inhaler (Ventolin HFA) shortness of breath or wheezing #18 grams [id number] 45 mg-folic 4 cap PO DAILY 12/27/22 12/28/22 acid 800 mcg-vit K 120 mcg capsule (Bariatric Multivitamins) sennosides 8.6 mg tablet (Senokot) 8.6 mg PO QMWF 12/28/22 12/28/22 Previous Rx's Medication Instructions Recorded inhalational spacing device #1 ea 03/30/20 (Aerochamber MV spacer) betamethasone valerate 0.1 % 1 applic topical BID #15 grams 03/11/21 topical cream calcipotriene 0.005 % topical 1 applic topical DAILY #120 grams 05/20/21 ointment albuterol sulfate 2.5 mg/3 mL 2.5 mg (3 mL) inhalation Q4H PRN 08/20/21 (0.083 %) solution for nebulization shortness of breath or wheezing #180 mL fluticasone furoate 200 1 inh inhalation DAILY #3 ea 01/18/22 mcg-vilanterol 25 mcg/dose inhalation powder (Breo Ellipta) lisinopril 10 1 tab PO DAILY #90 tabs 08/25/22 mg-hydrochlorothiazide 12.5 mg tablet apixaban 5 mg tablet (Eliquis) 5 mg PO BID #60 tabs 09/05/22 epinephrine 0.3 mg/0.3 mL 0.3 mg (0.3 mL) IM ONCE PRN 10/12/22 injection, auto-injector (EpiPen) anaphylaxis #2 ea albuterol sulfate 90 mcg/actuation 2 puff inhalation Q4H PRN 12/14/22 aerosol inhaler (Ventolin HFA) shortness of breath or wheezing #18 grams Allergies Allergy/AdvReac Type Severity Reaction Status Date / Time nickel Allergy Intermediate Blistering Verified 12/28/22 08:32 and shedding skin strawberry Allergy Intermediate HIVES Verified 12/28/22 08:32 oxycodone AdvReac Severe SEVERE Verified 12/28/22 08:32 NAUSEA/SHAKES erythromycin base AdvReac Intermediate VOMITING Verified 12/28/22 08:32 adhesive AdvReac Mild Verified 12/28/22 08:32 influenza virus vaccine, AdvReac Verified 12/28/22 08:32 specific General Stated Complaint: Dizzy/Sync SENIA: 3 PFSH <APRIL Vasquez - Last Filed: 12/29/22 20:59> All Active Problems (Updated 12/28/22 @ 16:11 by APRIL Vasquez) Dysfunctional uterine bleeding (Acute) 2010- menorrhagia. Nl labs. PCOS on pelvic u/s. No EMBx. Rx with cyclic Norethindrone - bleeding stopped. Jul 2022 bleeding started again s/p gastric bypass surgery - Rx norethindrone Moderate persistent asthma (Acute) Intertrigo (Acute) Type 2 diabetes mellitus (Acute) Psoriasis of scalp (Acute) Chronic back pain (Acute) Sleep apnea (Acute) Pre-syncope (Acute) Medical History (Updated 12/28/22 @ 16:11 by APRIL Vasquez) Abdominal wall hernia Elevated blood pressure reading without diagnosis of hypertension Elevated liver enzymes (10/14/14) Family history of coronary arteriosclerosis Food allergy Fractured coccyx Gastroesophageal reflux disease H/O deep venous thrombosis Heel pain History of pulmonary embolism 09/2020 Lymphedema Morbid obesity 06/2013 BMI 62 Otosclerosis Pedal edema Plantar fasciitis Polycystic ovarian syndrome SOB (shortness of breath) on exertion Surgical History section (10/15/14) History of bariatric surgery Family History Mother Diabetes Depression Heart disease Father Hearing loss Essential hypertension COPD (chronic obstructive pulmonary disease) Depression Heart disease Asthma Brother No problems noted. Grandfather Heart disease Grandfather Hearing loss Heart disease Grandmother Diabetes Essential hypertension Heart disease Hyperlipidemia Grandmother Scarlet fever Shingles Gout Essential hypertension COPD (chronic obstructive pulmonary disease) Depression Heart disease Asthma Maternal Aunt Personal history of malignant neoplasm BREAST Maternal Cousin Heart failure Personal history of malignant neoplasm SKIN PATERNAL GREAT GRANDMOTHER Dementia FAMILY HISTORY Heart failure Crohn disease Maternal Cousin Crohn disease Maternal Cousin Colitis Social History Smoking/Tobacco Use Status: Never Smoking risk assessment performed?: Yes Alcohol Intake: former Drug use: Never Substance use type: does not use Household members: other Details: 3 Number of Children: 0 current occupation: [employer] Pets and animals: Yes Pets and animals: cat(s) Frequency: does not exercise Tianna/Christianity: No preference Special tianna needs: No Seatbelt use: sometimes Do you feel safe at home: Yes Do you feel safe in your relationship?: Yes Female Reproductive History Menstrual control method: implanted History History Para 1 Hx # Term Pregnancies 1 Multiple births Hx # Pregnancies Ectopic pregnancies AB induced Hx Number of Living Children 1 AB spontaneous Exam <APRIL Vasquez - Last Filed: 12/29/22 20:59> Const General: cooperative, comfortable and no acute distress Orientation: alert and oriented x3 [facility] Head images: 1. 1 inch laceration noted, pupils equal round reactive to light and accommodation, extraocular muscles intact Resp Effort & Inspection: normal respiratory effort Auscultation: clear to auscultation bilaterally Cardio Rate: regular rate Rhythm: regular rhythm Neuro General: patient alert, patient oriented x3 and CN's II-XI intact bilaterally Cranial Nerves: CN's II-XI intact bilaterally and PERRL Speech: speech normal Motor: muscle tone normal throughout and strength 5/5 throughout Sensory Exam: no sensory deficits noted Other: GCS 15 Course <APRIL Vasquez - Last Filed: 12/29/22 20:59> Vital Signs Vital signs: Vital Signs Temperature 36.9 C 12/28/22 12:39 Pulse 50 L 12/28/22 12:39 Respiratory Rate 16 12/28/22 12:39 Blood Pressure 109/56 L 12/28/22 12:39 Pulse Oximetry 100 12/28/22 12:39 Temperature 36.9 C 12/28/22 12:39 Temperature Source Temporal Artery Scan 12/28/22 12:39 Pulse 50 L 12/28/22 12:39 Respiratory Rate 16 12/28/22 12:41 Respiratory Effort Normal 12/28/22 12:41 Respiratory Depth Normal 12/28/22 12:41 Respiratory Pattern Normal 12/28/22 12:41 Blood Pressure 109/56 L 12/28/22 12:39 Blood Pressure Position Supine 12/28/22 12:39 Pulse Oximetry 100 12/28/22 12:39 Oxygen Delivery Method Room Air 12/28/22 12:39 Oxygen Flow Rate 0 12/28/22 12:39 Lab/Test Results Lab/Test Results: Laboratory Tests Range/Units 12/28/22 12/28/22 12/28/22 13:24 13:24 13:24 WBC (4.4-10.8) 10^3/uL 9.55 RBC (3.93-5.22) 10^6/uL 4.34 Hgb (11.2-15.7) g/dL 12.4 Hct (36.0-46.0) % 38.5 MCV (80-95) fL 89 MCH (27.0-33.0) pg 28.6 MCHC (32.0-36.0) % 32.2 RDW (11.7-14.6) % 14.4 Plt Count (130-400) 10^3/uL 206 MPV (8.0-11.0) fL 11.9 H Immature Gran % 0.3 Neutrophils % 64.3 Lymphocytes % 25.9 Monocytes % 7.9 Eosinophils % 1.3 Basophils % 0.3 Nucleated RBC % (0.0-0.3) % 0.0 Absolute Neutrophils (1.2-6.7) 10^3/uL 6.15 Absolute Lymphocytes (1.2-3.4) 10^3/uL 2.47 Absolute Monocytes (0.1-0.8) 10^3/uL 0.75 Absolute Eosinophils (0.0-0.7) 10^3/uL 0.12 Absolute Basophils (0.0-0.2) 10^3/uL 0.03 Sodium (136-145) mmol/L 143 Potassium (3.5-5.1) mmol/L 3.4 L Chloride (98-107) mmol/L 106 Carbon Dioxide (21.0-32.0) mmol/L 28.2 Anion Gap (3-11) mmol/L 8.8 BUN (7-18) mg/dL 13 Creatinine (0.55-1.02) mg/dL 0.8 Est GFR (CKD-EPI 2020) (mL/min/1.73m2) 94.28 Glucose (74-106) mg/dL 115 H Calcium (8.5-10.1) mg/dL 8.9 Magnesium (1.8-2.4) mg/dL 1.8 Total Bilirubin (0.2-1.0) mg/dL 1.1 H AST (15-37) U/L 15 ALT (14-59) U/L 22 Alkaline Phosphatase (46-116) U/L 62 Total Protein (6.4-8.2) g/dL 6.6 Albumin (3.4-5.0) g/dL 2.9 L Lipase (16-77) U/L 28 Sign Out <APRIL Vasquez - Last Filed: 12/29/22 20:59> Sign Out Data: Sign Out Comment: pending obs and improvement of bradycardia, ambulatory trial, suspect sedation induced bradycardia Last updated by Vanessa Carmona PA at 12/28/22 16:00
== END 2022-12-28 17:14 | disposition home or self-care (01) ==
PROVIDERS: Physician Assistant; Emergency Provider Nurse Practitioner Family; PCP Family Medicine
DX: R55 Syncope and collapse (principal); S01.122A Laceration with foreign body of left eyelid and periocular area, initial encounter; W01.0XXA Fall on same level from slipping, tripping and stumbling without subsequent striking against object, initial encounter
CPT/HCPCS: 36416; 80053; 82962; 83690; 93005; 96361; 96365; 96375; 99284; 70450; 70486; 83735; 85025; 93010; J0131

== ENCOUNTER 2023-01-17 02:36 | Outpatient (CLI) | payer BC, SELFPAY ==
--- NOTE | 2023-01-17 13:30 | DI.MAMMO_ITS ---
Exam(s) MAMMO DIAGNOSTIC UNI EXAM: MAMMO DIAGNOSTIC UNI CLINICAL HISTORY: reassess left breast, ABNL BREAST FINDING, N64.59. TECHNIQUE: Craniocaudal and mediolateral oblique Full Field Digital Mammography views of the left br east with Computer Aided Diagnosis followed by Tomosynthesis. COMPARISON: Comparison is made with prior examinations. FINDINGS: Mammography/Tomosynthesis: Masses/Architectural Distortion: There has been no change in appearance of the asymmetric density in the retroareolar region of the left breast compared to multiple prior examinations. No suspicious ma sses or areas of architectural distortion are seen. Microcalcifictions: No suspicious pleomorphic-type are seen. Skin Thickening/Nipple Retraction: None. IMPRESSION: 1. No evidence of malignancy is noted. 2. Unless there is more urgent need, follow-up screening mammography is recommended, as per [place] [employer] guidelines. 3. The findings were discussed with the patient on the date of the examination. BI-RADS Category 2 - Benign Findings Breast Density - Category B - Scattered areas of fibroglandular density Breast density Category C or D implies that the patient has dense breast tissue. Dense breast tissue can make it harder to find cancer on a mammogram. Dense breast tissue is also associated with an incr eased risk of breast cancer. This information about the result of the mammogram report was provided to the patient to raise their awareness. Use this report when you speak with the patient about their risks for breast cancer, which includes their family history. At that time, you may recommend additional screening tests (Ultrasoun d or MRI) as these tests may add significant information. A negative radiographic report should not delay biopsy if a dominant or clinically suspicious mass is present. Up to ten percent of cancers are not identified on mammography. A negative report may reinforce clinical impression. Adenosis and dense breasts may obscure an underlying neoplasm. False positive reports average 6 to 10%. Patient will receive a letter notifying them of these results.
== END 2023-01-17 02:56 ==
PROVIDERS: PCP Family Medicine; Visit Provider Family Medicine
DX: N64.59 Other signs and symptoms in breast (principal); Z12.31 Encounter for screening mammogram for malignant neoplasm of breast
CPT/HCPCS: 77061; 77065; G0279

== ENCOUNTER 2023-04-05 09:36 | Outpatient (CLI) | payer BC, SELFPAY ==
[2023-04-05 12:36] LABS: Calculated LDL 65 mg/dL (<100); Cholesterol 115 mg/dL (<200); HDL Cholesterol 38 mg/dL (40-60); Potassium 3.6 mmol/L (3.5-5.1); Triglyceride 63 mg/dL (<150)
[2023-04-05 12:57] LABS: Vitamin D 25 Total 40.9 ng/mL (30-100)
== END 2023-04-05 09:37 | disposition home or self-care (01) ==
LOC: LOS 09:36
PROVIDERS: PCP Family Medicine; Referring Provider Family Medicine; Visit Provider Family Medicine
DX: E78.5 Hyperlipidemia, unspecified (principal); I10 Essential (primary) hypertension; G40.89 Other seizures
CPT/HCPCS: 36415; 80061; 82306; 84132

== ENCOUNTER 2023-08-10 03:28 | Outpatient (CLI) | payer BC, SELFPAY ==
[2023-08-10 10:59] LABS: HCT 44.5 % (36.0-46.0); HGB 14.1 g/dL (11.2-15.7); MCH 27.5 pg (27.0-33.0); MCHC 31.7 % (32.0-36.0); MCV 87 fL (80-95); Platelet Count 196 10^3/uL (130-400); RBC 5.12 10^6/uL (3.93-5.22); RDW 13.7 % (11.7-14.6); RDW-SD 43.8 fL; WBC 6.97 10^3/uL (4.4-10.8)
[2023-08-10 11:26] LABS: Iron 71 ug/dL (50-170); Total Iron Binding Capacity 254 ug/dL (250-450); Transferrin Sat 28 % (15-50)
[2023-08-10 11:38] LABS: ALT 25 U/L (14-59); AST 22 U/L (15-37); Albumin 3.3 g/dL (3.4-5.0); Alkaline Phosphatase 51 U/L (46-116); Anion Gap 7.6 mmol/L (3-11); BUN 13 mg/dL (7-18); CO2 27.4 mmol/L (21.0-32.0); CREATININE 0.7 mg/dL (0.55-1.02); Calcium 9.3 mg/dL (8.5-10.1); Chloride 104 mmol/L (98-107); Estimated GFR 109.98 (mL/min/1.73m2); Ferritin 226 ng/mL (8-252); Folate 19.9 ng/mL (8.6-20.0); Glucose 74 mg/dL (74-106); Potassium 4.1 mmol/L (3.5-5.1); Sodium 139 mmol/L (136-145); Total Protein 7.3 g/dL (6.4-8.2); Vitamin B12 629 pg/mL (193-986)
[2023-08-10 11:39] LABS: Vitamin D 25 Total 35.4 ng/mL (30-100)
[2023-08-10 20:00] LABS: Parathyroid Hormone,Intact 51 pg/mL (19-88)
[2023-08-15 12:17] LABS: Thiamine (Vitamin B1), WB 138 nmol/L (70-180)
== END 2023-08-10 03:29 | disposition home or self-care (01) ==
PROVIDERS: PCP Family Medicine; Visit Provider Nurse Practitioner Family
DX: Z98.84 Bariatric surgery status (principal); E83.10 Disorder of iron metabolism, unspecified
CPT/HCPCS: 36415; 80053; 82306; 85027; 82607; 82728; 82746; 83540; 83550; 83970; 84425

== ENCOUNTER → 2023-12-12 18:12 | Outpatient (CLI) | payer BC, SELFPAY ==
--- NOTE | 2023-12-12 18:15 | DI.RAD_ITS ---
Exam(s) XR KNEE LT 3V AP,LAT,SUDHAKAR EXAM: XR KNEE LT 3V AP,LAT,SUDHAKAR CLINICAL HISTORY: left knee pain. TECHNIQUE: 2D digital imaging was performed of the left knee. Three images were obtained. AP, late ral and PA tunnel views were obtained. COMPARISON: No priors for comparison. FINDINGS: BONES: No acute fracture is present. No bony destructive lesion is seen. JOINTS: There is mild narrowing of the medial femoral tibial joint. Osteophytes are seen at all 3 romi int compartments. No significant joint effusion is seen. No loose body. SOFT TISSUE: Normal. IMPRESSION: Moderate osteoarthritis of the knee. DATA REPOSITORY: RADIATION DOSE DELIVERED:
--- NOTE | 2023-12-12 20:29 | DI.VRAD_ITS ---
PROCEDURE INFORMATION: Exam: XR Left Knee Exam date and time: 12/12/2023 6:33 PM Age: 43 years old Clinical indication: Pain; Knee; Left TECHNIQUE: Imaging protocol: Radiologic exam of the left knee. Views: 3 views. COMPARISON: US LOWER EXTREMITY VENOUS LT 10/16/2020 8:19 AM FINDINGS: Bones/joints: There is tricompartmental joint space loss with subchondral sclerosis and osteophytosis. No effusion. No fracture. Soft tissues: Normal. IMPRESSION: Tricompartmental DJD. Dictated and Authenticated by: Rell Edward MD. Ordering:CAITLYN Vergara MD
== END ==
PROVIDERS: PCP Family Medicine; Visit Provider Physician Assistant
DX: M25.562 Pain in left knee (principal)
CPT/HCPCS: 73562

== ENCOUNTER 2024-09-12 02:47 | Outpatient (CLI) | payer BC, SELFPAY ==
--- NOTE | 2024-09-12 08:15 | DI.DEXA_ITS ---
Exam(s) XR DEXA BONE DENSITY W/WO RHONA EXAM: XR DEXA BONE DENSITY W/WO RHONA CLINICAL HISTORY: following bone density,s/p bariatric surgery,z98.84 TECHNIQUE: NavigatorMD Horizon C densitometer analysis of left hip, lumbar spine and left forearm. Lat eral survey image of the thoracic and lumbar spine. COMPARISON: CR,XR XR LUMBAR SPINE COMPLETE from 05/28/2021 FINDINGS: Lateral view of the thoracic and lumbar spine shows no evidence of compression fractures. Bone mineral density measurements of the lumbar spine correspond to a total T-score of -0.9, in the normal range. Bone mineral density measurements of the left hip correspond to a total T-score of 0.1. The femoral neck T-score is -0.8, in the normal range.. Theleft forearm bone mineral density measurements correspond to a T-score of the distal 3rd of -0.4, in the normal range. IMPRESSION: Normal bone mineral density.
== END 2024-09-12 03:07 ==
LOC: DI 02:47
PROVIDERS: PCP Family Medicine; Visit Provider Family Medicine
DX: Z98.84 Bariatric surgery status (principal); Z13.820 Encounter for screening for osteoporosis
CPT/HCPCS: 77080

== ENCOUNTER 2024-10-15 01:39 | Outpatient (CLI) | payer BC, SELFPAY ==
[2024-10-15 09:12] LABS: Ferritin 147 ng/mL (8-252); Vitamin D 25 Total 33 ng/mL (30-100)
[2024-10-15 19:37] LABS: Parathyroid Hormone,Intact 77.6 pg/mL (19.0-88.0)
== END 2024-10-15 01:40 | disposition home or self-care (01) ==
PROVIDERS: PCP Family Medicine; Visit Provider Nurse Practitioner Family
DX: Z98.84 Bariatric surgery status (principal); E83.10 Disorder of iron metabolism, unspecified; E83.50 Unspecified disorder of calcium metabolism; E55.9 Vitamin D deficiency, unspecified; R79.89 Other specified abnormal findings of blood chemistry
CPT/HCPCS: 36415; 82306; 82728; 83970

== ENCOUNTER 2024-11-15 00:02 | Outpatient (CLI) | payer BC, SELFPAY ==
--- NOTE | 2024-11-15 06:15 | DI.MAMMO_ITS ---
Exam(s) MAMMO SCREENING EXAM: MAMMO SCREENING CLINICAL HISTORY: screening,z12.39. TECHNIQUE: Bilateral full field digital CC and MLO mammographic images were obtained with 3D tomosyn thesis and utilizing computer aided detection (CAD). COMPARISON: Prior mammograms were reviewed. FINDINGS: There has been no significant change in the appearance and distribution of the fibroglandular tissue. There are no CAD designations. There are no new spiculated masses nor malignant appearing microcalcification groups. There is no significant architectural distortion nor skin thickening-retraction. IMPRESSION: No radiographic evidence of malignancy. BI-RADS Category 1 - Negative Breast Density - Category B - Scattered areas of fibroglandular density Breast density Category C or D implies that the patient has dense breast tissue. Dense breast tissue can make it harder to find cancer on a mammogram. Dense breast tissue is also associated with an incr eased risk of breast cancer. This information about the result of the mammogram report was provided to the patient to raise their awareness. Use this report when you speak with the patient about their risks for breast cancer, which includes their family history. At that time, you may recommend additional screening tests (Ultrasoun d or MRI) as these tests may add significant information. A negative radiographic report should not delay biopsy if a dominant or clinically suspicious mass is present. Up to ten percent of cancers are not identified on mammography. A negative report may reinforce clinical impression. Adenosis and dense breasts may obscure an underlying neoplasm. False positive reports average 6 to 10%. Patient will receive a letter notifying them of these results.
== END 2024-11-15 00:22 ==
PROVIDERS: PCP Family Medicine; Visit Provider Family Medicine
DX: Z12.31 Encounter for screening mammogram for malignant neoplasm of breast (principal); R92.323 Mammographic fibroglandular density, bilateral breasts
CPT/HCPCS: 77063; 77067

== ENCOUNTER 2025-04-08 14:51 | Outpatient (CLI) | payer BC, SELFPAY ==
--- NOTE | 2025-04-08 14:30 | DI.RAD_ITS ---
Exam(s) XR SHOULDER RT COMPLETE 2+V EXAM: XR SHOULDER RT COMPLETE 2+V CLINICAL HISTORY: RIGHT SHOULDER PAIN. TECHNIQUE: 2D digital imaging was performed. Three views. COMPARISON: No exams were available for comparison FINDINGS: BONES: No acute fracture is present. No bony destructive lesion is seen. JOINTS: No dislocation present. Glenohumeral joint space is maintained. There is no significant spurring at the AC joint or undersurface of the acromion.. SOFT TISSUE: There is a calcification seen posterior to the humeral head adjacent to the glenoid consistent with calcific tendinosis. There is some spurring at the lesser tuberosity. IMPRESSION: Calcific tendinosis. DATA REPOSITORY: RADIATION DOSE DELIVERED:
== END 2025-04-08 14:52 | disposition home or self-care (01) ==
LOC: DIORS 14:51
PROVIDERS: PCP Family Medicine; Visit Provider Student in an Organized Health Care Education/Training Program
DX: M25.511 Pain in right shoulder (principal); M75.31 Calcific tendinitis of right shoulder
CPT/HCPCS: 73030

== ENCOUNTER 2025-05-08 04:23 | Outpatient (CLI) | payer BC, SELFPAY ==
--- NOTE | 2025-05-08 07:30 | DI.MRI_ITS ---
Exam(s) MR UPPER JOINT RT WO EXAM: MR UPPER JOINT RT WO CLINICAL HISTORY: R SHOULDER PAIN,RT ROTATOR CUFF TEAR,M75.101 TECHNIQUE: Multiplanar multisequence MRI of the shoulder was performed. COMPARISON: CR XR SHOULDER RT COMPLETE 2+V from 04/08/2025 FINDINGS: MARROW:There is no evidence of fracture, Hill-Sachs deformity, nor ominous osseous lesions. Some focal bone edema is evident in the anterior humeral head at the level of the lesser tuberosity. Is no abnormal signal in the greater tuberosity nor in the osseous glenoid. GLENOHUMERAL JOINT: There are no obvious degenerative changes in the glenohumeral joint. No chondral defects nor osteophytes. No joint effusion noted. There are no degenerative subarticular cysts in the glenoid fossa. ROTATOR CUFF MECHANISM: AC JOINT/ACROMIUM: No obvious degenerative changes in the AC joint.. There is no evidence of os acromiale. There is no fluid in the subacromial bursa space. Supraspinatus: Intact. No evidence of tear nor muscle atrophy. Infraspinatus: There are 2 calcific densities intimately associated with the infraspinatus tendon at its convergence with the teres minor tendon on the posterior aspect of the greater tuberosity on the lateral aspect of the humeral head. These both measure approximately 5 x 4 mm and correspond to the findings on recent plain films. There does not appear to be prominent tendinitis signal nor tear nor muscle atrophy of the infraspinatus. Teres Minor: There is also no evidence of tear of the teres minor tendon. There is no abnormal intramuscular signal within these muscles of the rotator cuff mechanism. Subscapularis/anterior cuff: Intact. No abnormal signal at the level of the multipennate insertional fibers. However, there is a small 3 x 2 mm signal void at the level of the lesser tuberosity, either just anterior to the lesser tuberosity interposed between it and the subscapularis or actually with in the most superficial aspect of the lesser tuberosity. There is some adjacent intraosseous edema at this level within the anterior humeral head lesser tuberosity.. There is no abnormal intraosseous signal within the coracoid process (to suggest the presence of impingement-type pathology). BICEPS TENDON: Exhibits normal position within the intertubercular groove. No evidence of tear. No evidence of tenosynovitis and no calcifications are evident within the biceps tendon sheath. LABRUM: No labral tear identified. No evidence of paralabral cyst. LABROLIGAMENTOUS/CAPSULAR COMPLEX: There is no evidence of avulsion of the anterior-inferior labrum, capsule, inferior glenohumeral ligament complex nor disruption of the scapular periosteum to suggest the presence of a Bankart lesion. The inferior glenohumeral ligament is intact. QUADRILATERAL SPACE: No evidence of mass in the region of the axillary nerve and dorsal circumflex humeral vessels. Visualized triceps muscle at this level appears unremarkable. IMPRESSION: 1. No evidence of rotator cuff tear nor prominent tendinosis signal. 2. 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 3. There is also a slightly smaller 3 x 2 mm calcification located anteriorly. There is some motion artifact here making it difficult to determine if this calcification is within/exophytic off the posterior aspect of the subscapularis tendon or if it is actually within the Mohs superficial aspect of the greater tuberosity on the anterior aspect of the humeral head. Nevertheless, there is also some focal intraosseous edema in the lesser tuberosity at this level. 4. Given the above findings, there is no evidence of subacromial/subdeltoid bursitis. 5. There is no evidence of biceps tendon tear nor labral tear. 6. There are no significant osteoarthritic degenerative changes in the glenohumeral joint and there is no glenohumeral joint effusion. There is also minimal if any significant degenerative change in the AC joint. DATA REPOSITORY:
== END 2025-05-08 04:43 ==
LOC: DI 04:23
PROVIDERS: PCP Family Medicine; Visit Provider Student in an Organized Health Care Education/Training Program
DX: M75.101 Unspecified rotator cuff tear or rupture of right shoulder, not specified as traumatic (principal)
CPT/HCPCS: 73221